=== PATIENT | female | born 1960 | race Hispanic/Latino ===

== ENCOUNTER → 2017-08-10 13:11 | Outpatient (CLI) | payer SELFPAY ==
--- NOTE | 2017-08-10 13:15 | HPBI_ITS ---
MAMMOGRAPHY - UNILATERAL DIAGNOSTIC: LEFT BREAST REASON FOR EXAM: Female, 57 years old. Left breast mass. PERTINENT HISTORY: Prior bilateral excisional biopsies. TECHNIQUE: Digital unilateral breast marcelo (3D mammographic acquisition) in the CC and MLO projections. 2-D mediolateral oblique (MLO) and craniocaudad (CC) views of both breasts were obtained. CAD: Full Field Digital Mammography with Computer Added Detection was performed. COMPARISON: Comparison is made with prior study dated November 28, 2012. FINDINGS: Breast Composition: The breasts are heterogeneously dense, which may obscure small masses. There are no dominant masses or suspicious calcifications. Stable left axillary benign-appearing lymph nodes. No other significant abnormalities are identified. There has been no significant change since the prior study. HPBI/DIAG MAMM W/CAD, UNILAT IMPRESSION: Stable unilateral diagnostic mammogram. With the patient's history of a palpable abnormality of the left breast, correlation with ultrasound is recommended. ASSESSMENT CATEGORY: BIRADS Category 0: Incomplete. Need additional imaging evaluation. A letter regarding these results will be sent to the patient by the facility within 30 days. Approximately 10% of breast cancers are not detected by mammography. A normal mammogram should not delay biopsy of a clinically suspicious abnormality. Electronically Signed: Milad Brizuela MD at 14:24 EST Tel [phone], Service support ,
--- NOTE | 2017-08-10 14:30 | US_ITS ---
STUDY: ULTRASOUND BREAST - LEFT REASON FOR EXAM: Female, 57 years old. Palpable lump left breast. TECHNIQUE: Axial and longitudinal images of the LEFT breast were performed with a high resolution ultrasound transducer. COMPARISON: Comparison is made with prior mammogram dated August 10, 2017. FINDINGS: LEFT Breast: There is a 3 mm x 3 mm x 2 mm focal hypodensity in the subcutaneous tissues corresponding to the palpable abnormality. This most likely represents a sebaceous cyst. US/Breast Limited Unilateral IMPRESSION: The palpable abnormality most likely corresponds to a small sebaceous cyst. ASSESSMENT CATEGORY: BIRADS Category 2: Benign. A letter regarding these results will be sent to the patient by the facility within 30 days. Electronically Signed: Milad Brizuela MD at 14:06 EST Tel [phone], Service support ,
== END ==
PROVIDERS: Family Provider Internal Medicine; PCP Internal Medicine; Visit Provider Nurse Practitioner Women's Health
DX: N63.20 Unspecified lump in the left breast, unspecified quadrant (principal)
CPT/HCPCS: 76642; 77061; 77065; G0279

== ENCOUNTER → 2018-02-20 15:25 | Outpatient (CLI) | payer MEDICAID, SELFPAY ==
[2018-02-20 15:27] LABS: Bacteria 0 SEEN /hpf (None Seen); Mucous, Urine 0 SEEN /hpf (<or=2+); Red Blood Cells-Urine 0 SEEN /hpf (0-5)
[2018-02-20 16:15] LABS: Color, Urine Straw (Yellow); Glucose, Dipstick Normal (Normal); Ketone-Dipstick Negative (Negative); Leukocyte Esterase-Dipstick 500 /ul (Negative); Nitrite-Dipstick Negative (Negative); Occult Blood-Urine 10 /ul (Negative); Protein-Dipstick Negative (Negative); Specific Gravity, Urine 1.005 (1.002-1.030); Urine Bilirubin Dipstick Negative (Negative); Urine Clarity Clear (Clear); Urine Urobilinogen Normal (Normal)
[2018-02-20 16:33] LABS: Squamous Epithelial Cells - UA 0-5 SEEN /hpf (5-10); White Blood Cells 10-25 SEEN /hpf (0-5)
== END ==
PROVIDERS: Family Provider Internal Medicine; PCP Internal Medicine; Visit Provider Physician Assistant Surgical
DX: R30.0 Dysuria (principal)
CPT/HCPCS: 81001; 87086; 87088

== ENCOUNTER → 2018-04-14 15:33 | Outpatient (CLI) | payer MEDICAID, SELFPAY | PROVIDERS: Family Provider Internal Medicine; PCP Internal Medicine; Referring Provider Physician Assistant Medical; Visit Provider Physician Assistant Medical | DX: J02.9 Acute pharyngitis, unspecified (principal) | CPT/HCPCS: 87081 ==

== ENCOUNTER → 2018-05-07 10:28 | Outpatient (CLI) | payer OTHER, SELFPAY ==
[2018-05-06 08:51] VITALS: BMI 35.1
[2018-05-07 10:41] LABS: Mucous, Urine 0 SEEN /hpf (<or=2+)
[2018-05-07 10:45] LABS: Color, Urine Yellow (Yellow); Glucose, Dipstick Normal (Normal); Ketone-Dipstick Negative (Negative); Leukocyte Esterase-Dipstick 500 /ul (Negative); Nitrite-Dipstick Positive (Negative); Occult Blood-Urine 50 /ul (Negative); Protein-Dipstick Negative (Negative); Urine Bilirubin Dipstick Negative (Negative); Urine Clarity Sl. Cloudy (Clear); Urine Urobilinogen Normal (Normal)
[2018-05-07 11:15] LABS: Red Blood Cells-Urine 0-5 SEEN /hpf (0-5)
[2018-05-07 11:16] LABS: Bacteria 2+ /hpf (None Seen); Squamous Epithelial Cells - UA 0-5 SEEN /hpf (5-10); White Blood Cells 25-50 SEEN /hpf (0-5)
== END ==
PROVIDERS: Family Provider Internal Medicine; PCP Internal Medicine; Referring Provider Nurse Practitioner Family; Visit Provider Nurse Practitioner Family
DX: R30.0 Dysuria (principal)
CPT/HCPCS: 81001; 87086; 87088; 87186

== ENCOUNTER → 2018-05-12 09:13 | Outpatient (CLI) | payer SELFPAY ==
[2018-05-06 08:51] VITALS: BMI 35.1
--- NOTE | 2018-05-12 09:35 | RAD_ITS ---
STUDY: X-RAY - RIGHT FOOT CLINICAL: Female, 58 years old. Pain for weeks TECHNIQUE: view(s) of the foot. COMPARISON: None. FINDINGS: There is an enthesophyte involving the posterior superior calcaneus at the site of insertion of the Achilles tendon. There is a plantar spur. There are accessory ossicles seen on the plantar side of the tarsals. Normal visualized subtalar, talonavicular, calcaneocuboid, tarsal and tarsometatarsal articulations. There is a well-corticated slightly irregular appearance of the distal fourth metatarsal which may represent old injury. There appears to be mild soft tissue swelling about the foot. There is enthesopathic V at the proximal fifth metatarsal. Normal metatarsophalangeal joint of the great toe. Normal tibial and fibular sesamoid bones. Normal interphalangeal joint of the great toe. Normal phalanges of the great toe. Normal second through fifth metatarsophalangeal joints. Normal interphalangeal joints and phalanges of the lesser toes. There is partially visualized slight cortical irregularity of the distal fibula. RAD/Foot min 3 Views IMPRESSION: Mild soft tissue swelling. Possible old injury of the fourth metatarsal. No visualized acute fracture. Partially visualized Possible prior injury of the distal fibula. Electronically Signed: Maria Ines Sethi MD at 10:54 EST Tel , Service support ,
== END ==
PROVIDERS: Family Provider Internal Medicine; PCP Internal Medicine; Referring Provider Internal Medicine; Visit Provider Internal Medicine
DX: M21.961 Unspecified acquired deformity of right lower leg (principal)
CPT/HCPCS: 73630

== ENCOUNTER → 2018-06-06 14:19 | Outpatient (CLI) | payer OTHER, SELFPAY ==
[2018-06-06 09:28] VITALS: BMI 35.1
== END ==
PROVIDERS: Family Provider Internal Medicine; PCP Internal Medicine; Referring Provider Nurse Practitioner Family; Visit Provider Nurse Practitioner Family
DX: J02.9 Acute pharyngitis, unspecified (principal)
CPT/HCPCS: 87070

== ENCOUNTER → 2018-06-20 09:33 | Outpatient (CLI) | payer OTHER, SELFPAY ==
[2018-06-06 09:28] VITALS: BMI 35.1
--- NOTE | 2018-06-20 09:36 | MRI_ITS ---
STUDY: MRI BRAIN WITH AND WITHOUT CONTRAST REASON FOR EXAM: Female, 58 years old. Yearly checkup of meningioma. TECHNIQUE: Standardized multiplanar fat and water weighted pulse sequences were obtained. 9 ml of Gadavist contrast material was administered intravenously for the contrast portion of the examination. COMPARISON: 06/23/2017. FINDINGS: Solid enhancing right infratentorial meningioma measures 3.4 x 2.3 cm in the axial projection, who 0.9 x 2.6 cm in the coronal projection and 3 x 2.6 cm in the sagittal projection. Allowing for differences in technique and slice levels, this is unchanged. There is no associated vasogenic edema. Normal size of the ventricles and extra-axial spaces for the patient's age. Normal white matter tracts of the supratentorial brain. Normal bilateral basal ganglia. Normal thalami. There is no extra-axial fluid accumulation. Normal flow voids within the major intracranial circulation suggesting patency by spin echo criteria. Normal venous enhancement. There is no enhancing intra-axial or extra-axial abnormality. Normal sella turcica, pituitary gland, infundibular stalk, optic chiasm and hypothalamus. Normal tectal plate and pineal gland. Normal midbrain, shilpa and medulla. Normal cerebellum. Normal basal cisterns. Normal bilateral temporal bones. Normal bilateral internal auditory canals. No demonstrated orbital abnormality, within the constraints of a routine brain study. Normal visualized paranasal sinuses. Normal calvarium and skull base. Normal visualized soft tissue structures. Normal visualized upper cervical spine. MRI/Brain W/WO Contrast IMPRESSION: 1. Stable and unchanged solid enhancing right infratentorial meningioma without associated vasogenic edema. 2. No interval changes or new findings when compared to 06/23/2017. Electronically Signed: Hakan Iniguez MD at 9:42 EST , Service support ,
== END ==
PROVIDERS: Family Provider Internal Medicine; PCP Internal Medicine; Referring Provider Internal Medicine Hematology & Oncology; Visit Provider Internal Medicine Hematology & Oncology
DX: D32.0 Benign neoplasm of cerebral meninges (principal)
CPT/HCPCS: 70553; A9585

== ENCOUNTER → 2018-08-15 16:13 | Outpatient (CLI) | payer OTHER, SELFPAY ==
[2018-08-15 09:20] VITALS: BMI 37.3
[2018-08-22 12:20] LABS: HPV APTIMA, High Risk Negative (Negative)
== END ==
PROVIDERS: Family Provider Internal Medicine; PCP Internal Medicine; Referring Provider Obstetrics & Gynecology; Visit Provider Obstetrics & Gynecology
DX: N39.0 Urinary tract infection, site not specified (principal); Z12.4 Encounter for screening for malignant neoplasm of cervix
CPT/HCPCS: 87086; 87088; 87624; 88175; G0145

== ENCOUNTER → 2018-10-22 | Outpatient (CLI) | payer SELFPAY ==
[2018-09-05 17:47] VITALS: BMI 35.6
[2018-10-22 08:56] LABS: Absolute Lymphocyte Count 1.98 X10^3/ul (0.83-4.51); Absolute Neutrophil Count 7.6 X10^3/uL (2.0-7.7); Basophil# 0.05 X10^3/uL; Basophil% 0.5 % (0-1); Eosinophil# 0.37 X10^3/uL; Eosinophils% 3.5 % (0-5); Hematocrit 41.7 % (37-47); Hemoglobin 13.9 g/dl (12.0-15.0); Lymphocyte # 1.98 X10^3/ul (4.0); Lymphocyte % 18.5 % (19-41); Mean Corp Hgb Conc 33.3 g/gl (32-36); Mean Corpuscular Hgb 30.1 pg (27.0-32.0); Mean Corpuscular Volume 90.3 fL (81-99); Monocyte# 0.66 X10^3/uL; Monocyte% 6.2 % (0-10); Neutrophil # 7.63 X10^3/uL (2.7-7.7); Neutrophil % 71.2 % (47-70); Platelet Count 423 K/mm3 (150-450); RBC Distribution Width CV 13.7 % (11.6-14.6); RBC Distribution Width SD 44.7 fl (35.1-43.9); Red Blood Count 4.62 M/mm3 (4.2-5.4); White Blood Count 10.7 K/mm3 (4.4-11.0)
[2018-10-22 08:57] LABS: POSITIVE COUNT NO; POSITIVE DIFFERENTIAL NO; POSITIVE MORPHOLOGY NO
[2018-10-22 09:22] LABS: AST(SGOT) 25 U/L (15-37); Alanine Aminotransfer ALT/SGPT 24 U/L (13-56); Albumin, Serum 3.6 g/dL (3.2-5.0); Alkaline Phosphatase 111 U/L (45-117); Anion Gap 7 (5-15); BUN 20 mg/dL (7-18); BUN/Creat Ratio 33.3 RATIO (10-20); Calcium,Total 9.1 mg/dL (8.5-10.1); Chloride 110 mmol/L (98-107); Cholesterol 193 mg/dL (200); EST Glomerular Filtration Rate 109 mL/min (>60); Est Glom Filt Rate - Afr Amer 132 mL/min (>60); Globulin 3.6 g/dL (2.2-4.2); Glucose 99 mg/dL (74-106); High Density Lipoprotein 70 mg/dL; Potassium 4.2 mmol/L (3.5-5.1); Protein, Total 7.2 g/dL (6.4-8.2); Sodium Level 142 mmol/L (136-145); Triglycerides 148 mg/dL; Very Low Density Lipoprotein 30 mg/dL (5-40)
[2018-10-22 09:27] LABS: Hemoglobin A1c 5.8 % (4.2-6.3)
== END | disposition home or self-care (01) ==
LOC: LAB 07:35
PROVIDERS: Family Provider Internal Medicine; PCP Internal Medicine; Referring Provider Internal Medicine; Visit Provider Internal Medicine
DX: M81.0 Age-related osteoporosis without current pathological fracture (principal); E78.5 Hyperlipidemia, unspecified; E66.9 Obesity, unspecified
CPT/HCPCS: 36415; 80053; 80061; 83036; 85025

== ENCOUNTER 2018-11-02 13:05 | Emergency (ER) | payer OTHER, SELFPAY ==
[2018-10-24 17:52] VITALS: BMI 35.6
[2018-11-02 13:05] VITALS: BP 162/96; PULSE 70; RESP 14; TEMP 35.6; O2SAT 96; BMI 34.3
[2018-11-02 13:25] VITALS: BP 137/83; PULSE 71; RESP 12; O2SAT 98
--- NOTE | 2018-11-02 13:32 | EKG12_ITS ---
Test Reason : HTN Blood Pressure : / mmHG Vent. Rate : 064 BPM Atrial Rate : 064 BPM P-R Int : 148 ms QRS Dur : 092 ms QT Int : 428 ms P-R-T Axes : 050 023 010 degrees QTc Int : 441 ms Normal sinus rhythm Normal ECG Confirmed by GEO GILL, MAXINE ([id number]), editor managing director GIORGIO ZHU ([id number] on 11/05/2018 4:13:17 PM Referred By: ZELDA Confirmed By:MAXINE GUARDADO MD
--- NOTE | 2018-11-02 13:42 | ED.VISSUMM ---
- ER Visit Summary Date of Service: 11/02/18 Chief Complaint: Dizziness History of Present Illness: The patient is a 58 F who presents with dizziness that began today while she was at work. Patient states she felt like she was still moving even after she sat down. Patient states her dizziness is worse with certain head movements. Patient states that improves with rest. Patient checked her blood pressure at [facility] and was elevated at 161/80. Patient denies any headaches. Patient does admit to some pressure in her ears. Patient also admits to a sore throat and cough recently. Patient admits to some nausea but denies any vomiting. Physical Examination: Vital signs are stable. Patient is afebrile. Patient is in no acute distress. Pupils are equal, round, and reactive to light bilaterally. Extraocular muscles are intact. There is no nystagmus noted. Oral mucosa is pink and moist. Neck is supple. Trachea is midline. There is no JVD noted. Heart was regular rate and rhythm. Lungs are clear and equal bilateral. Abdomen is soft. Bowel sounds are normal. There is no tenderness. There is no guarding noted. Skin is warm dry. Cranial nerves II through XII are intact. There are no focal motor or sensory deficits noted. The remaining physical exam is within normal limits. Test Results: EKG showed normal sinus rhythm with a rate of low. There are no acute ST or T wave changes. CBC, basic metabolic profile, troponin, and urinalysis were obtained and were all normal. Emergency Department Course and Treatment: Patient was given IV fluids here. Patient is feeling better on reevaluation. Patient was instructed to follow-up with her primary care physician in 5 to 7 days. Patient and family understood and were agreeable with the plan. All questions were answered. Disposition: Discharge home Impression: Dizziness This note was generated with wizboo dictation software. It may contain incorrect words, spelling, and punctuation that were not noted in review of the chart prior to signing ED Disposition - Plan for ED Patient: Disposition: Home or Assisted Living Diagnosis: Dizziness Instructions: ED Dizziness [facility] Prescriptions: Meclizine HCl [Antivert] 25 mg PO TID PRN PRN #20 tablet PRN Reason: Dizziness Referrals: Camille Chappell MD [Primary Care Provider] - 3-5 Days Additional Instructions: Prescription was electronically transmitted to [facility] pharmacy
[2018-11-02] MEDS: 0.9% Normal Saline 1,000 ML 1000 ML IV (13:51)
[2018-11-02 14:06] LABS: Absolute Lymphocyte Count 1.99 X10^3/ul (0.83-4.51); Absolute Neutrophil Count 4.7 X10^3/uL (2.0-7.7); Basophil# 0.02 X10^3/uL; Basophil% 0.3 % (0-1); Eosinophil# 0.25 X10^3/uL; Eosinophils% 3.2 % (0-5); Hematocrit 39.9 % (37-47); Hemoglobin 13.5 g/dl (12.0-15.0); Lymphocyte # 1.99 X10^3/ul (4.0); Lymphocyte % 25.8 % (19-41); Mean Corp Hgb Conc 33.8 g/gl (32-36); Mean Corpuscular Hgb 30.3 pg (27.0-32.0); Mean Corpuscular Volume 89.7 fL (81-99); Mean Platelet Vol. 9.3 fl (6.2-12.0); Monocyte# 0.73 X10^3/uL; Monocyte% 9.5 % (0-10); Neutrophil # 4.72 X10^3/uL (2.7-7.7); Neutrophil % 61.1 % (47-70); POSITIVE COUNT NO; POSITIVE DIFFERENTIAL NO; POSITIVE MORPHOLOGY NO; Platelet Count 479 K/mm3 (150-450); RBC Distribution Width CV 13.3 % (11.6-14.6); RBC Distribution Width SD 42.9 fl (35.1-43.9); Red Blood Count 4.45 M/mm3 (4.2-5.4); White Blood Count 7.7 K/mm3 (4.4-11.0)
[2018-11-02 14:18] LABS: Anion Gap 6 (5-15); BUN 19 mg/dL (7-18); BUN/Creat Ratio 29.1 RATIO (10-20); Chloride 106 mmol/L (98-107); Creatinine, Serum 0.65 mg/dL (0.55-1.02); EST Glomerular Filtration Rate 99 mL/min (>60); Est Glom Filt Rate - Afr Amer 120 mL/min (>60); Estimated Creatinine Clearance 82.46 ml/min; Glucose 95 mg/dL (74-106); Potassium 3.9 mmol/L (3.5-5.1); Sodium Level 139 mmol/L (136-145)
[2018-11-02 14:26] LABS: Bacteria 0 SEEN /hpf (None Seen); Mucous, Urine 0 SEEN /hpf (<or=2+); Red Blood Cells-Urine 0 SEEN /hpf (0-5)
[2018-11-02 14:40] LABS: Color, Urine Yellow (Yellow); Glucose, Dipstick Normal (Normal); Ketone-Dipstick Negative (Negative); Leukocyte Esterase-Dipstick 25 /ul (Negative); Nitrite-Dipstick Negative (Negative); Occult Blood-Urine Negative /ul (Negative); Protein-Dipstick Negative (Negative); Urine Bilirubin Dipstick Negative (Negative); Urine Clarity Sl. Cloudy (Clear); Urine Urobilinogen Normal (Normal)
[2018-11-02 14:49] LABS: Squamous Epithelial Cells - UA 0-5 SEEN /hpf (5-10); White Blood Cells 0-5 SEEN /hpf (0-5)
[2018-11-02 14:53] VITALS: BP 128/72; PULSE 67
== END 2018-11-02 15:09 | disposition home or self-care (01) ==
PROVIDERS: Emergency Provider Emergency Medicine; Family Provider Internal Medicine; PCP Internal Medicine
DX: R42 Dizziness and giddiness (principal); H92.09 Otalgia, unspecified ear; J02.9 Acute pharyngitis, unspecified; R05 Cough; R10.9 Unspecified abdominal pain; R11.0 Nausea; M54.9 Dorsalgia, unspecified; J45.909 Unspecified asthma, uncomplicated; I10 Essential (primary) hypertension; M81.0 Age-related osteoporosis without current pathological fracture; Z79.899 Other long term (current) drug therapy
CPT/HCPCS: 80048; 81001; 84484; 85025; 93005; 96360; 99284; J7030

== ENCOUNTER → 2019-06-17 16:21 | Outpatient (CLI) | payer OTHER, SELFPAY ==
[2019-06-17 15:48] VITALS: BMI 34.3
[2019-06-17 18:08] LABS: Vitamin D,25 Hydroxy 17.2 ng/mL (29.95-100.01)
== END ==
PROVIDERS: Family Provider Internal Medicine; PCP Internal Medicine; Referring Provider Internal Medicine Endocrinology, Diabetes & Metabolism; Visit Provider Internal Medicine Endocrinology, Diabetes & Metabolism
DX: E55.9 Vitamin D deficiency, unspecified (principal)
CPT/HCPCS: 36415; 82306

== ENCOUNTER → 2019-07-27 09:14 | Outpatient (CLI) | payer OTHER, SELFPAY ==
[2019-06-17 15:48] VITALS: BMI 34.3
--- NOTE | 2019-07-27 09:15 | BI_ITS ---
MAMMOGRAPHY - BILATERAL SCREENING REASON FOR EXAM: Female, 59 years old. Routine annual screening examination. PERTINENT HISTORY: Non-contributory. Remote bilateral excisional breast biopsies. TECHNIQUE: Digital bilateral breast bo (3D mammographic acquisition) in the CC and MLO projections. 2-D mediolateral oblique (MLO) and craniocaudad (CC) views of both breasts were obtained. CAD: Full Field Digital Mammography with Computer Added Detection was performed. COMPARISON: Comparison is made with prior study dated November 28, 2012. FINDINGS: Breast Composition: The breasts are heterogeneously dense, which may obscure small masses. There are no dominant masses or suspicious calcifications. Stable bilateral small benign-appearing axillary lymph nodes. A tissue clip marker is seen within the central slightly medial aspect of the right breast. No other significant abnormalities are identified. There has been no significant change since the prior study. BI/SCREEN MAMM (CAD) W/BO BILAT IMPRESSION: Stable bilateral screening mammogram. Yearly follow-up mammogram recommended. (A) ASSESSMENT CATEGORY: BIRADS Category 2: Benign. A letter regarding these results will be sent to the patient by the facility within 30 days. Approximately 10% of breast cancers are not detected by mammography. A normal mammogram should not delay biopsy of a clinically suspicious abnormality. [id number] Electronically Signed: Milad Brizuela, at 8:58 EST , Service support ,
== END ==
LOC: OPBI 09:15
PROVIDERS: PCP Internal Medicine; Referring Provider Nurse Practitioner Women's Health; Visit Provider Nurse Practitioner Women's Health
DX: Z12.31 Encounter for screening mammogram for malignant neoplasm of breast (principal)
CPT/HCPCS: 77063; 77067

== ENCOUNTER → 2020-06-16 | Outpatient (CLI) | payer OTHER, SELFPAY ==
[2020-02-05 10:52] VITALS: BMI 34.3
[2020-06-16 11:37] LABS: Mucous, Urine 0 SEEN /hpf (<or=2+); Red Blood Cells-Urine 0 SEEN /hpf (0-5); White Blood Cells 0 SEEN /hpf (0-5)
[2020-06-16 12:21] LABS: Color, Urine Yellow (Yellow); Glucose, Dipstick Normal (Normal); Ketone-Dipstick Negative (Negative); Leukocyte Esterase-Dipstick Negative /ul (Negative); Nitrite-Dipstick Negative (Negative); Occult Blood-Urine Negative /ul (Negative); Protein-Dipstick Negative (Negative); Specific Gravity, Urine 1.005 (1.002-1.030); Urine Bilirubin Dipstick Negative (Negative); Urine Clarity Clear (Clear); Urine Urobilinogen Normal (Normal); Urine pH 6.5 (5.0 - 8.0)
[2020-06-16 12:28] LABS: Bacteria RARE /hpf (None Seen); Squamous Epithelial Cells - UA 0-5 SEEN /hpf (5-10)
== END | disposition home or self-care (01) ==
LOC: LABSPEC 11:35
PROVIDERS: PCP Internal Medicine; Referring Provider Nurse Practitioner Family; Visit Provider Nurse Practitioner Family
DX: R30.0 Dysuria (principal)
CPT/HCPCS: 81001; 87086; 87088

== ENCOUNTER → 2020-10-15 09:01 | Outpatient (CLI) | payer OTHER, SELFPAY ==
[2020-10-15 12:09] LABS: Absolute Lymphocyte Count 1.69 X10^3/uL (0.83-4.51); Absolute Neutrophil Count 4.4 X10^3/uL (2.0-7.7); Basophil# 0.05 X10^3/uL; Basophil% 0.7 % (0-1); Eosinophil# 0.49 X10^3/uL; Eosinophils% 6.7 % (0-5); Hematocrit 44.4 % (37-47); Hemoglobin 14.5 g/dL (12.0-15.0); Lymphocyte # 1.69 X10^3/ul (0.83-4.51); Lymphocyte % 23.2 % (19-41); Mean Corp Hgb Conc 32.7 g/dL (32-36); Mean Corpuscular Hgb 30.7 pg (27.0-32.0); Mean Corpuscular Volume 94.1 fL (81-99); Monocyte# 0.61 X10^3/uL; Monocyte% 8.4 % (0-10); NRBC Flagged by Analyzer 0 % (0-5); Neutrophil # 4.42 X10^3/uL (2.7-7.7); Neutrophil % 60.7 % (47-70); Platelet Count 402 K/mm3 (150-450); RBC Distribution Width CV 12.2 % (11.6-14.6); RBC Distribution Width SD 42.5 fl (35.1-43.9); Red Blood Count 4.72 M/mm3 (4.2-5.4); White Blood Count 7.3 K/mm3 (4.4-11.0)
[2020-10-15 12:25] LABS: Vitamin D,25 Hydroxy 44.1 ng/mL
[2020-10-15 12:29] LABS: ALB/GLOB Ratio 1.1 RATIO (0.9-2.4); AST(SGOT) 24 U/L (15-37); Alanine Aminotransfer ALT/SGPT 25 U/L (13-56); Albumin, Serum 3.9 g/dL (3.2-5.0); Alkaline Phosphatase 108 U/L (45-117); Anion Gap 5 (5-15); BUN 18 mg/dL (7-18); BUN/Creat Ratio 26.5 RATIO (10-20); Calcium,Total 9.5 mg/dL (8.5-10.1); Chloride 105 mmol/L (98-107); Cholesterol 188 mg/dL (200); Creatinine, Serum 0.68 mg/dL (0.55-1.02); EST Glomerular Filtration Rate 94 mL/min (>60); Est Glom Filt Rate - Afr Amer 114 mL/min (>60); Globulin 3.7 g/dL (2.2-4.2); Glucose 91 mg/dL (74-106); High Density Lipoprotein 68 mg/dL; Potassium 4.1 mmol/L (3.5-5.1); Protein, Total 7.6 g/dL (6.4-8.2); Sodium Level 138 mmol/L (136-145); Triglycerides 123 mg/dL; Very Low Density Lipoprotein 25 mg/dL (5-40)
== END ==
PROVIDERS: PCP Internal Medicine; Referring Provider Internal Medicine; Visit Provider Internal Medicine
DX: I10 Essential (primary) hypertension (principal); E55.9 Vitamin D deficiency, unspecified
CPT/HCPCS: 36415; 80053; 80061; 82306; 85025

== ENCOUNTER → 2020-10-29 07:01 | Outpatient (CLI) | payer OTHER, SELFPAY ==
[2020-10-19 09:09] VITALS: BMI 34.3
[2020-10-22 13:28] VITALS: BMI 34.3
--- NOTE | 2020-10-29 07:03 | BI_ITS ---
MAMMOGRAPHY - BILATERAL SCREENING REASON FOR EXAM: Female, 60 years old. Routine annual screening examination. PERTINENT HISTORY: Non-contributory. Remote right and left excisional breast biopsies. TECHNIQUE: Digital bilateral breast bo (3D mammographic acquisition) in the CC and MLO projections. 2-D mediolateral oblique (MLO) and craniocaudad (CC) views of both breasts were obtained. CAD: Full Field Digital Mammography with Computer Added Detection was performed. COMPARISON: Comparison is made with prior study of July 2019 and 11/28/2012. FINDINGS: Breast Composition: The breasts are heterogeneously dense, which may obscure small masses. There are no dominant masses or suspicious calcifications. Interstitial markings once again seen in the central slightly medial aspect of the right breast stable benign appearing bilateral axillary lymph nodes. No other significant abnormalities are identified. There has been no significant change since the prior study. BI/SCRN MAMM (CAD)W/BO BILAT IMPRESSION: Stable bilateral screening mammogram. Yearly follow-up mammogram recommended. (A) ASSESSMENT CATEGORY: BIRADS Category 2: Benign. A letter regarding these results will be sent to the patient by the facility within 30 days. Approximately 10% of breast cancers are not detected by mammography. A normal mammogram should not delay biopsy of a clinically suspicious abnormality. [id number] Electronically Signed: Milad Brizuela MD at 8:27 EDT , Service support ,
== END ==
PROVIDERS: PCP Internal Medicine; Referring Provider Internal Medicine; Visit Provider Internal Medicine
DX: Z12.31 Encounter for screening mammogram for malignant neoplasm of breast (principal)
CPT/HCPCS: 77063; 77067

== ENCOUNTER → 2021-11-04 | Outpatient (CLI) | payer OTHER, SELFPAY ==
--- NOTE | 2021-11-04 08:08 | BI_ITS ---
MAMMOGRAPHY - BILATERAL SCREENING REASON FOR EXAM: Female, 61 years old. Routine annual screening examination. PERTINENT HISTORY: Non-contributory. History of prior bilateral excisional breast biopsies. TECHNIQUE: Digital bilateral breast bo (3D mammographic acquisition) in the CC and MLO projections. 2-D mediolateral oblique (MLO) and craniocaudad (CC) views of both breasts were obtained. CAD: Full Field Digital Mammography with Computer Added Detection was performed. COMPARISON: Comparison is made with prior study dated 10/29/2020 and 07/27/2019. FINDINGS: Breast Composition: The breasts are heterogeneously dense, which may obscure small masses. There are no dominant masses or suspicious calcifications. A tissue clip marker is seen in the deep central medial aspect of the left breast. Stable microcalcifications in in the central portion of the left breast. No other significant abnormalities are identified. There has been no significant change since the prior study. BI/SCRN MAMM (CAD)W/BO BILAT IMPRESSION: Stable bilateral screening mammogram. Yearly follow-up mammogram recommended. (A) ASSESSMENT CATEGORY: BIRADS Category 2: Benign. A letter regarding these results will be sent to the patient by the facility within 30 days. Approximately 10% of breast cancers are not detected by mammography. A normal mammogram should not delay biopsy of a clinically suspicious abnormality. [id number] Electronically Signed: iMlad Brizuela MD at 9:01 EDT ,
--- NOTE | 2021-11-04 08:27 | BD_ITS ---
STUDY: DUAL ENERGY X-RAY ABSORPTIOMETRY / DXA REASON FOR EXAM: Female, 61 years old. Osteoporosis TECHNIQUE: Bone Mineral Density (BMD) measurements of lumbar spine and bilateral hips were obtained. COMPARISON: None. FINDINGS: Lumbar Spine (L1-L4): g/cm2 (0.774) / T-score (-2.2) / Z-score (-0.8) Findings are suggestive of osteopenia with a high fracture risk. Left Femur Total: g/cm2 (0.860) / T-score (-0.7) / Z-score (0.3) Left Femoral Neck: g/cm2 (0.68) / T-score (-1.5) / Z-score (-0.2) Right Femur Total: g/cm2 (0.828) / T-score (-0.9) / Z-score (0.1) Right Femoral Neck: g/cm2 (0.676) / T-score (-1.6) / Z-score (-0.2) BD/Dexa Bone Density Study IMPRESSION: The patient is considered osteopenic as outlined below according to World Arturo Organization (WHO) criteria with a high fracture risk. Reference Information: The T-score is the number of standard deviations above or below the standard which is normal for young adults at their peak bone mineral density. The World Health Organization (WHO) interprets the T-scores as follows: Above -1 Normal bone density Between -1 and -2.5 Osteopenia Equal to / or below -2.5 Osteoporosis As a practical clinical guideline, osteopenia may be graded as follows: Mild -1 through -1.5 Moderate -1.6 through -2.0 Severe -2.1 through -2.4 The Z-score is the number of standard deviations above or below age-matched controls. A Z-score of less than -1.5 would be considered abnormal. References: 1. NIH Osteoporosis and Related Bone Diseases www osteo.org 2. International Society for Clinical Densitometry www iscd.org 3. National Osteoporosis Foundation www nof.org Electronically Signed: Milad Brizuela MD at 12:54 EDT ,
== END | disposition home or self-care (01) ==
LOC: OPBI 08:05
PROVIDERS: PCP Internal Medicine; Visit Provider Internal Medicine
DX: Z12.31 Encounter for screening mammogram for malignant neoplasm of breast (principal); Z13.820 Encounter for screening for osteoporosis; M81.0 Age-related osteoporosis without current pathological fracture
CPT/HCPCS: 77063; 77067; 77080

== ENCOUNTER 2021-11-30 06:16 | Day surgery (SDC) | payer OTHER, SELFPAY ==
[2021-11-30] VITALS (11 sets, daily range): BP systolic 94–154; BP diastolic 52–82; PULSE 56–65; RESP 16–18; TEMP 36.1–36.4; O2SAT 95–100; BMI 32.8
--- NOTE | 2021-11-30 | COLBX_PTH ---
PATIENT: YASEMIN VALENZUELA I LOC: EN U#:[id number] AGE/SX: 61/F ROOM: RE11/30/[address]: Dr. Diogenes Tilley MD : 1960 BED: DIS: 11/30/2021 SPEC #: [id number] RECD: 11/30/21 13:22 STATUS: HERNANDEZ BENTLEY #: [id number] NNAMDI: 11/30/21 00:[address]: Diogenes Tilley DEPT: SURGICAL PATHOLOGY RECD BY: Lee Benavidez ENTERED: 11/30/21 13:23 SP TYPE: COLON BX OTHR DR: Dr. Camille Chappell MD Tissues: SPLENIC FLEXURE Procedures: Surgery Specimen Level IV HEADER OPERATION: Colonoscopy with polypectomy, open access (MOD) PRE-OP DIAGNOSIS: History of colonic polyps TISSUE SUBMITTED: Polyp biopsy, splenic flexure MICROSCOPIC DIAGNOSIS Colonic polyp at splenic flexure, biopsy: Tubular adenoma. AM:july 12/01/2021 MICROSCOPIC DESCRIPTION Slides are reviewed. GROSS DESCRIPTION Received in fixative is one container labeled with the patient's name and designated polyp biopsy splenic flexure. The specimen consists of two irregular fragments of light huber soft tissue that in aggregate measure 0.6 x 0.3 x 0.1 cm. The specimen is totally submitted in one cassette. / SJ:july 11/30/2021 TC:5 CPT: 03608
[2021-11-30] MEDS: Lactated Ringers 1,000 ML 15 ML IV (06:58)
--- NOTE | 2021-11-30 07:17 | PCM.HP.STD ---
HPI - General HPI Narrative YASEMIN VALENZUELA, is a 61 F who presents via open access today for a colonoscopy. She has a personal history of colon polyps. Her previous colonoscopy by Dr. Trev Mukherjee was approximately 7 years ago. She is also had previous colon surgery with a sigmoid resection for diverticular disease. She currently denies any illnesses. No chest pain no shortness of breath. No history of DVT. [facility] Medical History (Updated 11/30/21 @ 07:[address] Diogenes Tilley MD) Abrasion of right heel Arthritis Asthma Back pain Back pain Colon cancer screening colon surgery-diverticulitis Fatty liver Health care maintenance High cholesterol HX: benign breast biopsy Hypertension Meningioma Osteoporosis Preventative health care Shoulder pain Sinusitis SOB (shortness of breath) Vitamin D deficiency Home Medications garlic 1,000 mg capsule 1,000 mg PO .QID cap 11/09/18 [History Last Taken Unknown] rosuvastatin 20 mg tablet 20 mg PO DAILY #90 tab 06/23/21 [Rx Last Taken Unknown] albuterol sulfate 90 mcg/actuation aerosol inhaler 2 puff INHALATION Q4H PRN #17 g 07/01/21 [Rx Last Taken Unknown] cyclobenzaprine 10 mg tablet 5 - 10 mg PO TID PRN #30 tab 07/01/21 [Rx Last Taken Unknown] dicyclomine 20 mg tablet 20 mg PO BID PRN #60 tab 07/01/21 [Rx Last Taken Unknown] cholecalciferol (vitamin D3) 1,250 mcg (50,000 unit) capsule 50,000 unit PO QWEEK #13 cap 08/05/21 [Rx Last Taken Unknown] methenamine hippurate 1 gram tablet 1 g PO BID #180 tab 11/08/21 [Rx Last Taken Unknown] propranolol 10 mg tablet 10 mg PO BID #180 tab 11/08/21 [Rx Last Taken 11/30/21] Allergy/AdvReac Type Severity Reaction Status Date / Time cephalexin monohydrate Allergy Severe Anaphylaxis Verified 11/30/21 06:52 [From Keflex] norfloxacin Allergy Severe Rash Verified 11/30/21 06:52 Latex, Natural Rubber Allergy Mild Itching Verified 11/30/21 06:52 isopropyl alcohol AdvReac Mild red Verified 11/30/21 06:52 seafood Allergy Severe Other Uncoded 11/30/21 06:52 Family History Uncle Colon cancer Grandmother Mouth cancer Uterine cancer Other Lung cancer Surgical History History of section History of tonsillectomy Social History Smoking Status: Never smoker alcohol intake: never substance use type: does not use caffeine: Yes what type of physical activity do you participate in: none seatbelt use: always do you feel safe at home: Yes additional social history: Single ROS Constitutional Constitutional: Reports systems reviewed and no addt'l complaints, except as documented Cardiovascular Cardiovascular: Denies chest pain Respiratory/Chest Respiratory/Chest: Denies shortness of breath at rest Gastrointestinal Gastrointestinal: Denies abdominal pain, change in bowel habits, hematochezia or melena Vital Signs Vital Signs Vital Signs: 11/30/21 06:53 Temperature 96.9 F L Temperature Source Temporal Pulse Rate 57 L Respiratory Rate 18 Respiratory Pattern Normal Blood Pressure 146/76 H Blood Pressure Mean 99 Blood Pressure Source Monitor Blood Pressure Position Semi-Fowlers Blood Pressure Location Right Arm Pulse Ox 95 Oxygen Delivery Method Room Air Weight Weight: 191 lb Body Mass Index (BMI) 32.8 Physical Exam Const alert, oriented x3 and no apparent distress General Appearance: cooperative and comfortable Eyes General Eye: normal appearance of both eyes Neck General: normal visual inspection Chest inspection of chest normal Resp Effort and Inspection: able to speak in complete sentences and symmetric chest movement Auscultation: clear to auscultation bilaterally Cardio regular rate and regular rhythm GI soft to palpation, non-tender and non-distended Extremity no calf tenderness Neuro oriented x3 Psych thought process normal Assessment & Plan Assessment/Plan (1) Personal history of colonic polyps: PLAN: The patient presents via open access today for screening colonoscopy with a personal history of colon polyps remotely. I discussed with her colonoscopy with possible biopsy or polypectomy as indicated. She is aware of the technique, benefit, risk, alternatives. We will proceed as noted. Diogenes Tilley M.D., F.A.C.S.
[2021-11-30] MEDS: Midazolam 5 MG/ML Syringe (07:50)
--- NOTE | 2021-11-30 08:19 | OP.CCLET_ITS ---
11/30/2021 Camille Chappell MD [address] [place] [address] [place] [address] Re : Colonoscopy procedure for Matilda Gordillo Dear Dr. Chappell This procedure was performed on Tuesday, November 30, 2021. My impressions and recommendations are as follows: Impressions : - Non-thrombosed external hemorrhoids, non-thrombosed internal hemorrhoids and internal hemorrhoids that prolapse with straining, but spontaneously regress to the resting position (Grade II) found on digital rectal exam. - One 6 mm polyp at the splenic flexure, removed with a cold biopsy forceps. Resected and retrieved. - Patent end-to-end colo-colonic anastomosis. - Diverticulosis in the sigmoid colon and in the transverse colon. Recommendations : - Discharge patient to home. - Resume previous diet. - Continue present medications. - Repeat colonoscopy in 5 years for surveillance based on pathology results. - Telephone my office for pathology results in 1 week. My findings are described in the full procedure note, which is enclosed. If I can be of further assistance, please feel free to contact me at Doctor phone number(s): Work: . Sincerely, Diogenes Tilley MD 11/30/2021 8:19:30 AM This report has been signed electronically.
--- NOTE | 2021-11-30 08:19 | OP.COLON_ITS ---
Patient Name: Matilda Gordillo Procedure Date: 11/30/2021 7:44 AM Date of : 1960 Age: 61 Procedure: Colonoscopy Indications: High risk colon cancer surveillance: Personal history of colonic polyps Providers: Diogenes Tilley MD Medicines: Midazolam 4 mg IV, Meperidine 100 mg IV Patient Profile: Last Colonoscopy: several years ago. Complications: No immediate complications. Procedure: Pre-Anesthesia Assessment: - Prior to the procedure, a History and Physical was performed, and patient medications and allergies were reviewed. The patient's tolerance of previous anesthesia was also reviewed. The risks and benefits of the procedure and the sedation options and risks were discussed with the patient. All questions were answered, and informed consent was obtained. Prior Anticoagulants: The patient has taken no previous anticoagulant or antiplatelet agents. ASA Grade Assessment: II - A patient with mild systemic disease. After reviewing the risks and benefits, the patient was deemed in satisfactory condition to undergo the procedure. After I obtained informed consent, the scope was passed under direct vision. Throughout the procedure, the patient's blood pressure, pulse, and oxygen saturations were monitored continuously. The colonoscope was introduced through the anus and advanced to the cecum, identified by appendiceal orifice and ileocecal valve. The colonoscopy was performed without difficulty. The patient tolerated the procedure well. The quality of the bowel preparation was good. The ileocecal valve was photographed. Moderate Sedation: Moderate (conscious) sedation was personally administered by the endoscopist. The following parameters were monitored: oxygen saturation, heart rate, blood pressure, and response to care. Total physician intraservice time was 15 minutes. Scope In: 7:57:34 AM Scope Withdrawal Time 0 hours 10 minutes 2 seconds Scope Out: 8:13:15 AM Total Procedure Duration Time 0 hours 15 minutes 41 seconds Findings: The digital rectal exam findings include non-thrombosed external hemorrhoids, non-thrombosed internal hemorrhoids and internal hemorrhoids that prolapse with straining, but spontaneously regress to the resting position (Grade II). A 6 mm polyp was found in the splenic flexure. The polyp was sessile. The polyp was removed with a cold biopsy forceps. Resection and retrieval were complete. There was evidence of a prior end-to-end colo-colonic anastomosis in the distal sigmoid colon. This was patent. A few diverticula were found in the sigmoid colon and transverse colon. Impression: - Non-thrombosed external hemorrhoids, non-thrombosed internal hemorrhoids and internal hemorrhoids that prolapse with straining, but spontaneously regress to the resting position (Grade II) found on digital rectal exam. - One 6 mm polyp at the splenic flexure, removed with a cold biopsy forceps. Resected and retrieved. - Patent end-to-end colo-colonic anastomosis. - Diverticulosis in the sigmoid colon and in the transverse colon. Recommendation: - Discharge patient to home. - Resume previous diet. - Continue present medications. - Repeat colonoscopy in 5 years for surveillance based on pathology results. - Telephone my office for pathology results in 1 week. Procedure Code(s): --- Professional --- 69836, Colonoscopy, flexible; with biopsy, single or multiple 61076, 59, Moderate sedation services provided by the same physician or other qualified health skin care technician performing the diagnostic or therapeutic service that the sedation supports, requiring the presence of an independent trained observer to assist in the monitoring of the patient's level of consciousness and physiological status; initial 15 minutes of intraservice time, patient age 5 years or older Diagnosis Code(s): --- Professional --- Z86.010, Personal history of colonic polyps K64.1, Second degree hemorrhoids K64.4, Residual hemorrhoidal skin tags D12.3, Benign neoplasm of transverse colon (hepatic flexure or splenic flexure) Z98.0, Intestinal bypass and anastomosis status K57.30, Diverticulosis of large intestine without perforation or abscess without bleeding CPT copyright 2017 [employer]. All rights reserved. The codes documented in this report are preliminary and upon braille coder review may be revised to meet current compliance requirements. Diogenes Tilley MD 11/30/2021 8:19:30 AM This report has been signed electronically. Number of Addenda: 0 Note Initiated On: 11/30/2021 7:44 AM
== END 2021-11-30 09:01 | disposition home or self-care (01) ==
LOC: EN 06:18 → AC 06:18
PROVIDERS: PCP Internal Medicine; Referring Provider Internal Medicine; Visit Provider Surgery
PROC: 0DJD8ZZ Inspection of Lower Intestinal Tract, Via Natural or Artificial Opening Endoscopic (ICD-10-PCS; CPT 45378; principal; 2021-11-30 07:25)
DX: D12.3 Benign neoplasm of transverse colon (principal); Z86.010 Personal history of colon polyps; K76.0 Fatty (change of) liver, not elsewhere classified; E78.00 Pure hypercholesterolemia, unspecified; E55.9 Vitamin D deficiency, unspecified; M81.0 Age-related osteoporosis without current pathological fracture; I10 Essential (primary) hypertension; J45.909 Unspecified asthma, uncomplicated; M19.90 Unspecified osteoarthritis, unspecified site; Z79.899 Other long term (current) drug therapy; Z87.440 Personal history of urinary (tract) infections; E66.9 Obesity, unspecified; Z68.32 Body mass index [BMI] 32.0-32.9, adult; K64.1 Second degree hemorrhoids; K64.4 Residual hemorrhoidal skin tags; K57.30 Diverticulosis of large intestine without perforation or abscess without bleeding; Z98.0 Intestinal bypass and anastomosis status
CPT/HCPCS: 45380; 88305; 99152; 99153; J7120

== ENCOUNTER → 2021-12-31 | Outpatient (CLI) | payer OTHER, SELFPAY ==
[2021-12-31 08:59] LABS: Bacteria 0 SEEN /hpf (None Seen); Mucous, Urine 0 SEEN /hpf (<or=2+); Red Blood Cells-Urine 0 SEEN /hpf (0-5)
[2021-12-31 12:16] LABS: Absolute Lymphocyte Count 1.73 X10^3/uL (0.83-4.51); Absolute Neutrophil Count 4.6 X10^3/uL (2.0-7.7); Basophil# 0.05 X10^3/uL; Basophil% 0.7 % (0-1); Eosinophil# 0.62 X10^3/uL; Eosinophils% 8.2 % (0-5); Hematocrit 41.3 % (37-47); Hemoglobin 13.8 g/dL (12.0-15.0); Lymphocyte # 1.73 X10^3/ul (0.83-4.51); Lymphocyte % 22.9 % (19-41); Mean Corp Hgb Conc 33.4 g/dL (32-36); Mean Corpuscular Hgb 31.1 pg (27.0-32.0); Mean Platelet Vol. 10.7 fl (6.2-12.0); Monocyte% 7.9 % (0-10); NRBC Flagged by Analyzer 0 % (0-5); Neutrophil # 4.55 X10^3/uL (2.7-7.7); Platelet Count 377 K/mm3 (150-450); RBC Distribution Width CV 12.4 % (11.6-14.6); RBC Distribution Width SD 42.3 fl (35.1-43.9); Red Blood Count 4.44 M/mm3 (4.2-5.4); White Blood Count 7.6 K/mm3 (4.4-11.0)
[2021-12-31 12:21] LABS: Color, Urine Yellow (Yellow); Glucose, Dipstick Normal (Normal); Ketone-Dipstick Negative (Negative); Leukocyte Esterase-Dipstick 25 /ul (Negative); Nitrite-Dipstick Negative (Negative); Occult Blood-Urine Negative /ul (Negative); Protein-Dipstick Negative (Negative); Urine Bilirubin Dipstick Negative (Negative); Urine Clarity Sl. Cloudy (Clear); Urine Urobilinogen Normal (Normal)
[2021-12-31 12:26] LABS: White Blood Cells 0-5 SEEN /hpf (0-5)
[2021-12-31 12:27] LABS: Squamous Epithelial Cells - UA 0-5 SEEN /hpf (5-10)
[2021-12-31 12:32] LABS: ALB/GLOB Ratio 1.1 RATIO (0.9-2.4); AST(SGOT) 26 U/L (15-37); Alanine Aminotransfer ALT/SGPT 27 U/L (13-56); Albumin, Serum 3.9 g/dL (3.2-5.0); Alkaline Phosphatase 92 U/L (45-117); Anion Gap 5 (5-15); BUN 18 mg/dL (7-18); Calcium,Total 9.7 mg/dL (8.5-10.1); Chloride 105 mmol/L (98-107); Cholesterol 207 mg/dL (200); Creatinine, Serum 0.67 mg/dL (0.55-1.02); EST Glomerular Filtration Rate 96 mL/min (>60); Est Glom Filt Rate - Afr Amer 116 mL/min (>60); Globulin 3.6 g/dL (2.2-4.2); Glucose 97 mg/dL (74-106); High Density Lipoprotein 66 mg/dL; Potassium 4.3 mmol/L (3.5-5.1); Protein, Total 7.5 g/dL (6.4-8.2); Sodium Level 139 mmol/L (136-145); Triglycerides 127 mg/dL; Very Low Density Lipoprotein 25 mg/dL (5-40)
== END | disposition home or self-care (01) ==
LOC: BIMLAB 08:02
PROVIDERS: PCP Internal Medicine; Referring Provider Internal Medicine; Visit Provider Internal Medicine
DX: E78.5 Hyperlipidemia, unspecified (principal); I10 Essential (primary) hypertension
CPT/HCPCS: 36415; 80053; 80061; 81001; 85025

== ENCOUNTER → 2022-05-25 | Outpatient (CLI) | payer OTHER, SELFPAY ==
[2022-05-25 10:20] LABS: Bacteria 0 SEEN /hpf (None Seen); Mucous, Urine 0 SEEN /hpf (<or=2+)
[2022-05-25 10:38] LABS: Color, Urine Yellow (Yellow); Glucose, Dipstick Normal (Normal); Ketone-Dipstick Negative (Negative); Leukocyte Esterase-Dipstick 500 /ul (Negative); Nitrite-Dipstick Negative (Negative); Occult Blood-Urine 10 /ul (Negative); Protein-Dipstick Negative (Negative); Urine Bilirubin Dipstick Negative (Negative); Urine Clarity Sl. Cloudy (Clear); Urine Urobilinogen Normal (Normal)
[2022-05-25 10:46] LABS: Red Blood Cells-Urine 0-5 SEEN /hpf (0-5); Squamous Epithelial Cells - UA 0-5 SEEN /hpf (5-10); White Blood Cells 25-50 SEEN /hpf (0-5)
== END | disposition home or self-care (01) ==
LOC: LABSPEC 10:12
PROVIDERS: PCP Internal Medicine; Referring Provider Physician Assistant Surgical; Visit Provider Physician Assistant Surgical
DX: N39.0 Urinary tract infection, site not specified (principal)
CPT/HCPCS: 81001; 87086; 87088

== ENCOUNTER → 2022-05-30 | Outpatient (CLI) | payer OTHER, SELFPAY ==
[2022-05-30 13:32] LABS: Hemoglobin A1c 5.6 % (3.8-5.6)
== END | disposition home or self-care (01) ==
LOC: BIMLAB 07:58
PROVIDERS: PCP Internal Medicine; Referring Provider Internal Medicine; Visit Provider Internal Medicine
DX: R73.03 Prediabetes (principal)
CPT/HCPCS: 36415; 83036

== ENCOUNTER → 2022-06-08 | Outpatient (CLI) | payer OTHER, SELFPAY ==
--- NOTE | 2022-06-08 11:55 | RAD_ITS ---
EXAM: XR ABDOMEN, 1 VIEW CLINICAL INDICATION: right flank pain TECHNIQUE: Frontal supine view of the abdomen/pelvis. This report was created using [employer] report generation technology. COMPARISON: None. FINDINGS: LOWER THORAX: No acute pathology. GASTROINTESTINAL TRACT: Unremarkable. Non-obstructive. No bowel or stomach distention. ORGANS: Unremarkable as visualized. No organomegaly. No abnormal calcifications. BONES/JOINTS: Degenerative findings in the lumbar spine. SOFT TISSUES: No acute pathology. RAD/Abdomen Single View IMPRESSION: No acute findings. Electronically Signed: Moises Barragan MD at 16:58 EST ,
[2022-06-08 15:32] LABS: Bacteria 0 SEEN /hpf (None Seen); Mucous, Urine 0 SEEN /hpf (<or=2+); Red Blood Cells-Urine 0 SEEN /hpf (0-5)
[2022-06-08 16:46] LABS: Color, Urine Straw (Yellow); Glucose, Dipstick Normal (Normal); Ketone-Dipstick Negative (Negative); Leukocyte Esterase-Dipstick 25 /ul (Negative); Nitrite-Dipstick Negative (Negative); Occult Blood-Urine Negative /ul (Negative); Protein-Dipstick Negative (Negative); Urine Bilirubin Dipstick Negative (Negative); Urine Clarity Clear (Clear); Urine Urobilinogen Normal (Normal); Urine pH 6.5 (5.0 - 8.0)
[2022-06-08 19:29] LABS: Squamous Epithelial Cells - UA 0-5 SEEN /hpf (5-10); White Blood Cells 0-5 SEEN /hpf (0-5)
== END | disposition home or self-care (01) ==
PROVIDERS: PCP Internal Medicine; Visit Provider Nurse Practitioner Family
DX: R10.9 Unspecified abdominal pain (principal)
CPT/HCPCS: 74018; 81001; 87086

== ENCOUNTER → 2022-06-24 | Outpatient (CLI) | payer OTHER, SELFPAY ==
--- NOTE | 2022-06-24 13:12 | ECHOD_ITS ---
Reason For Study: Arrhythmia Procedure This was a 2D Doppler, Color Flow transthoracic echocardiogram. Exam performed in department. Left Ventricle Normal LV size. Left ventricular systolic function is normal. The estimated ejection fraction is 65 %. Stage 1 diastolic dysfunction. No regional wall motion abnormalities noted. Right Ventricle Normal RV size. Normal systolic function. Atria Normal left atrium. Normal right atrium. Mitral Valve Normal mitral valve. Tricuspid Valve Normal tricuspid valve. Aortic Valve Normal aortic valve. Pulmonic Valve Normal pulmonic valve. Great Vessels Normal aortic root. The pulmonary artery is normal size. Normal inferior vena cava. Pericardium/Pleural No pericardial effusion. MMode/2D Measurements & Calculations LVIDd: 3.7 cm IVSd: 1.2 cm LA dimension: 3.7 cm LVIDs: 2.1 cm LVPWd: 1.2 cm RVDd: 3.2 cm FS: 41.2 % LAV(MOD-bp): 45.8 ml LA A4 area: 16.1 cm2 RA A4 area: 12.8 cm2 LAV(MOD-bp) Indexed: 23.5 ml/m2 LAV(MOD-sp2): 47.3 ml LAV(MOD-sp4): 43.0 ml Time Measurements MV dec time: 0.24 sec Doppler Measurements & Calculations MV E max genaro: 59.2 cm/sec Lat Peak E' Genaro: 11.3 cm/sec Med Peak E' Genaro: 9.9 cm/sec MV A max genaro: 82.3 cm/sec E/E' lat: 5.2 E/E' med: 6.0 MV E/A: 0.72 MV V2 max: 101.0 cm/sec MV P1/2t max genaro: 80.6 cm/sec Ao V2 max: 178.0 cm/sec MV max P.1 mmHg MV P1/2t: 86.6 msec Ao max P.7 mmHg MV V2 mean: 49.2 cm/sec MV dec slope: 272.6 cm/sec2 Ao V2 mean: 115.4 cm/sec MV mean P.2 mmHg MVA(P1/2t): 2.5 cm2 Ao mean P.2 mmHg MV V2 VTI: 24.8 cm Ao V2 VTI: 35.7 cm LV V1 max: 134.9 cm/sec PA V2 max: 97.8 cm/sec PI end-d genaro: 74.1 cm/sec LV V1 max P.3 mmHg ECHO/Echo Complete Interpretation Summary Normal LV size. Left ventricular systolic function is normal. The estimated ejection fraction is 65 %. Stage 1 diastolic dysfunction. Ordering Physician: Husam Sanchez Referring Physician: Camille Chappell Performed By: Keny Hayden RCS
== END | disposition home or self-care (01) ==
PROVIDERS: PCP Internal Medicine; Referring Provider Internal Medicine Cardiovascular Disease; Visit Provider Internal Medicine Cardiovascular Disease
DX: I10 Essential (primary) hypertension (principal); R00.2 Palpitations
CPT/HCPCS: 93225; 93226; 93306

== ENCOUNTER → 2022-11-07 | Outpatient (CLI) | payer OTHER, SELFPAY ==
--- NOTE | 2022-11-07 09:06 | BI_ITS ---
MAMMOGRAPHY - BILATERAL SCREENING REASON FOR EXAM: Female, 62 years old. Routine annual screening examination. PERTINENT HISTORY: Non-contributory. Remote history of prior bilateral excisional breast biopsies. TECHNIQUE: Digital bilateral breast ob (3D mammographic acquisition) in the CC and MLO projections. 2-D mediolateral oblique (MLO) and craniocaudad (CC) views of both breasts were obtained. CAD: Full Field Digital Mammography with Computer Added Detection was performed. COMPARISON: Mammogram from 11/04/2021, 10/29/2020. FINDINGS: Breast Composition: There are scattered areas of fibroglandular density. There are no dominant masses or suspicious calcifications. Stable biopsy marker in the right lower inner breast. Stable scattered benign-appearing bilateral breast calcifications. Stable small benign-appearing bilateral axillary lymph nodes. No other significant abnormalities are identified. There has been no significant change since the prior study. BI/SCRN MAMM (CAD)W/BO BILAT IMPRESSION: Stable bilateral screening mammogram. Yearly follow-up mammogram recommended. (A) ASSESSMENT CATEGORY: BIRADS Category 2: Benign. A letter regarding these results will be sent to the patient by the facility within 30 days. Approximately 10% of breast cancers are not detected by mammography. A normal mammogram should not delay biopsy of a clinically suspicious abnormality. Electronically Signed: Christian Ambriz MD at 15:25 EDT ,
== END | disposition home or self-care (01) ==
LOC: OPBI 09:04
PROVIDERS: PCP Internal Medicine; Referring Provider Registered Nurse; Visit Provider Registered Nurse
DX: Z12.31 Encounter for screening mammogram for malignant neoplasm of breast (principal)
CPT/HCPCS: 77063; 77067

== ENCOUNTER 2022-11-17 10:33 | Emergency (ER) | payer OTHER, SELFPAY ==
--- NOTE | 2022-11-17 10:35 | ED.RN ---
PT WANTS TO BE SEEN RIGHT AWAY. WANTS TO WAIT OUTSIDE TILL CAN SEE HER.
[2022-11-17 10:36] VITALS: BP 180/100; PULSE 54; RESP 14; TEMP 36.6; O2SAT 98; BMI 34.6
--- NOTE | 2022-11-17 11:22 | EDS_ITS ---
HPI <TIARRA Walls - Last Filed: 11/17/22 16:29> History of Present Illness Chief Complaint: Upper Extremity Injury Narrative Narrative: Patient presenting today with pain, slight edema, and slight erythema to the distal aspect of her right index finger that she has had since last night. She reports that it does hurt to bend at the DIP joint. She denies any history of gout and did not injure her finger in any way. She did notice a small opening i n the skin near the DIP joint and is not sure if she got bit by a bug. She denies any fever, chills. She denies any history of diabetes. PFS <TIARRA Walls - Last Filed: 11/17/22 16:29> REPLACED BY [facility] Medical History Abrasion of right heel Acute cystitis Acute sinusitis, unspecified Arthritis Asthma Back pain Back pain Borderline type 2 diabetes mellitus Colon cancer screening colon surgery-diverticulitis Fatty liver Flu vaccine need Health care maintenance High cholesterol HX: benign breast biopsy Hypertension Meningioma Osteoporosis Preventative health care Right flank pain Shoulder pain Sinusitis SOB (shortness of breath) Vaccine counseling Vitamin D deficiency Home Medications garlic 1,000 mg capsule 1,000 mg PO .QID 11/09/18 [History Last Taken Unknown] albuterol sulfate 90 mcg/actuation aerosol inhaler 2 puff inhalation Q4H PRN shortness of breath or wheezing #17 grams 08/26/22 [Rx Last Taken Unknown] cholecalciferol (vitamin D3) 1,250 mcg (50,000 unit) capsule 50,000 unit PO QWEEK #13 caps 08/26/22 [Rx Last Taken Unknown] cyclobenzaprine 10 mg tablet 5 - 10 mg PO TID PRN muscle spasm #30 tabs 08/26/22 [Rx Last Taken Unknown] dicyclomine 20 mg tablet 20 mg PO BID PRN gi spasms #60 tabs 08/26/22 [Rx Last Taken Unknown] levocetirizine 5 mg tablet (Xyzal) 5 mg PO QPM PRN allergy symptoms #30 tabs 08/26/22 [Rx Last Taken Unknown] methenamine hippurate 1 gram tablet (Hiprex) 1 g PO BID #180 tabs 08/26/22 [Rx Last Taken Unknown] polyethylene glycol 3350 17 gram/dose oral powder (Miralax) 17 g PO DAILY PRN constipation 3 months #850 grams 08/26/22 [Rx Last Taken Unknown] propranolol 10 mg tablet 10 mg PO BID #180 tabs 08/26/22 [Rx Last Taken Unknown] rosuvastatin 20 mg tablet (Crestor) 20 mg PO DAILY #90 tabs 08/26/22 [Rx Last Taken Unknown] fluconazole 150 mg tablet 150 mg PO Q3D 2 doses #2 tabs 09/28/22 [Rx Last Taken Unknown] amoxicillin 875 mg-potassium clavulanate 125 mg tablet 1 tab PO BID 7 days #14 tabs 11/17/22 [Rx Last Taken Unknown] Allergy/AdvReac Type Severity Reaction Status Date / Time cephalexin monohydrate Allergy Severe Anaphylaxis Verified 11/17/22 10:35 [From Keflex] norfloxacin Allergy Severe Rash Verified 11/17/22 10:35 shellfish derived Allergy Severe TONGUE Verified 11/17/22 10:35 [seafood - shellfish] SWELLING Latex, Natural Rubber Allergy Mild Itching Verified 11/17/22 10:35 metoprolol AdvReac Intermediate Sneezing Verified 11/17/22 10:35 and nasal congestion isopropyl alcohol AdvReac Mild red Verified 11/17/22 10:35 Family History Uncle Colon cancer Grandmother Mouth cancer Uterine cancer Mother Hypertension Other Lung cancer Surgical History History of section History of tonsillectomy Hx of appendectomy Social History Smoking Status: Former smoker how long ago did patient quit smoking: quit 15 years alcohol intake: never substance use type: does not use caffeine: Yes Type: coffee Number of servings: 1 what type of physical activity do you participate in: none seatbelt use: always do you feel safe at home: Yes additional social history: Single ROS <TIARRA Walls - Last Filed: 11/17/22 16:29> ROS ED Constitutional Constitutional ED: Denies chills, fever(s) or sweats Cardiovascular Cardiovascular: Denies chest pain or palpitations Respiratory/Chest Respiratory/Chest: Denies cough or dyspnea Gastrointestinal Gastrointestinal: Denies abdominal pain, nausea or vomiting Musculoskeletal Musculoskeletal: Reports arthralgias; Denies myalgias Integumentary Denies abscess, Abrasions or rash Neurologic Neurologic: Denies paresthesias or weakness Psychiatric Psychiatric: Denies anxiety or depression EXAM <TIARRA Walls - Last Filed: 11/17/22 16:29> Physical Exam Const Vital Signs: 11/17/22 10:36 Temperature 98 F Temperature Source Temporal Pulse Rate 54 L Respiratory Rate 14 Blood Pressure 180/100 H Blood Pressure Mean 126 Pulse Ox 98 Oxygen Delivery Method Room Air Positive well nourished, well developed and no apparent distress General Appearance ED: well developed HEENT Reports normocephalic and head/scalp atraumatic Mouth ED: Yes moist mucous membranes normal Eyes PERRL and EOMs intact bilaterally Neck full ROM and supple Chest Wall inspection of chest normal Resp normal respiratory effort and clear to auscultation bilaterally Cardio regular rate and regular rhythm GI soft to palpation, non-tender, non-distended and no masses Back/Spine normal ROM and normal to inspection Extremity Extremity Narrative: Slight erythema and edema near the PIP joint of the right index finger. It does not seem consistent with gout but more so cellulitis. There is a small opening in the skin to the dorsal aspect of the PIP joint that looks like a small bug bite. No lymphatic streaking, radial pulses 2+ and equal bilaterally, good capillary refill, sensation intact. Patient is able to flex and extend finger at the MCP, DIP, and PIP joints. Neuro oriented x3, CN's II-XII intact bilaterally, moves all extremities, no focal motor deficits and no sensory deficits noted Sensorium / Orientation: awake and alert Psych mental status grossly normal and thought process normal Skin no rashes or lesions noted and no wounds MDM <TIARRA Walls - Last Filed: 11/17/22 16:29> [facility] MDM Narrative Medical decision making narrative: Slight erythema and edema near the PIP joint of the right index finger. It does not seem consistent with gout but more so cellulitis. There is a small opening in the skin to the dorsal aspect of the PIP joint that looks like a small bug bite. No lymphatic streaking. She is well-appearing and in no acute distress. She is afebrile. She denies any past history of diabetes. She will be started on Augmentin as she reports that she tolerates that antibiotic well. She has been given return instructions will be discharged home in stable condition. She is comfortable with plan. <Dr. Suraj Rutherford MD - Last Filed: 11/17/22 16:42> [facility] Treatment and Re-Evaluation Narrative: I have personally performed a face to face assessment of the patient and have reviewed the ROJELIO Note. I performed a substantive portion of the visit including all aspects of the following. My mason findings include: History: Patient complains of right index finger pain for couple days. No known trauma or impact. But she states it seems a little swollen. No fevers chills sweats. No history of recent infections. No history of gout. Exam: Patient does have a little break in the skin at the distal aspect on the dorsal lateral torsion. There is some erythema around it. But there is none on the opposite side of the finger. There is no indication of swelling in the joint. It looks like soft tissue just on one side. Knavel's signs are negative. This does not look vesicular. Does not look like tashia. This is not quite distal enough to be a paronychia. But it does look like there is some local cellulitis from a break in the skin or small cut or possible bite. Medical Decision Making: Because she is having pain and progressive redness and swelling we will initiate antibiotics. We discussed multiple reasons that would bring her back including swelling of the whole finger red streaking up the finger fevers chills or any other concerns. Discharge Plan Triage Chief Complaint: Upper Extremity Injury ED Midlevel Provider: Renetta Woo ED Provider: Suraj Rutherford Dx/Rx/DC Orders Clinical Impression: Cellulitis of finger Instructions: Cellulitis Dc Prescriptions: New amoxicillin-pot clavulanate 875-125 mg tablet 1 tab PO BID 7 Days Qty: 14 0RF No Action garlic 1,000 mg capsule 1,000 mg PO .QID levocetirizine [Xyzal] 5 mg tablet 5 mg PO QPM PRN (Reason: allergy symptoms) Qty: 30 1RF rosuvastatin [Crestor] 20 mg tablet 20 mg PO DAILY Qty: 90 3RF propranolol 10 mg tablet 10 mg PO BID Qty: 180 1RF polyethylene glycol 3350 [Miralax] 17 gram/dose powder 17 g PO DAILY PRN (Reason: constipation) 90 Days Qty: 850 3RF methenamine hippurate [Hiprex] 1 gram tablet 1 g PO BID Qty: 180 1RF dicyclomine 20 mg tablet 20 mg PO BID PRN (Reason: gi spasms) Qty: 60 3RF cyclobenzaprine 10 mg tablet 5 - 10 mg PO TID PRN (Reason: muscle spasm) Qty: 30 0RF cholecalciferol (vitamin D3) 1,250 mcg (50,000 unit) capsule 50,000 unit PO QWEEK Qty: 13 3RF albuterol sulfate 90 mcg/actuation HFA aerosol inhaler 2 puff inhalation Q4H PRN (Reason: shortness of breath or wheezing) Qty: 17 1RF Rx Instructions: INHALE 2 PUFFS BY MOUTH EVERY 4 HOURS NEEDED FOR SHORTNESS OF BREATH/WHEEZING fluconazole 150 mg tablet 150 mg PO Q3D Qty: 2 0RF Rx Instructions: Repeat in 72 hours if symptoms persists Primary Care Provider: Camille Chappell Referrals: Camille Chappell MD [Primary Care Provider] - 3-5 Days Activity Restrictions/Additional Instructions: Take antibiotic as directed and return for any worsening of symptoms. Follow-up with your PCP. Disposition Disposition: Home, Self Care Discharge Date/Time: 11/17/22 12:28
[2022-11-17 12:27] VITALS: BP 118/72; PULSE 84; RESP 16; TEMP 36.7; O2SAT 98
== END 2022-11-17 12:28 | disposition home or self-care (01) ==
LOC: ED 12:17
PROVIDERS: Emergency Provider Emergency Medicine; PCP Internal Medicine; Visit Provider Emergency Medicine
DX: L03.011 Cellulitis of right finger (principal); I10 Essential (primary) hypertension; E78.00 Pure hypercholesterolemia, unspecified; Z87.891 Personal history of nicotine dependence; J45.909 Unspecified asthma, uncomplicated; Z79.899 Other long term (current) drug therapy; Z90.49 Acquired absence of other specified parts of digestive tract
CPT/HCPCS: 99282

== ENCOUNTER → 2022-12-02 | Outpatient (CLI) | payer OTHER, SELFPAY ==
[2022-12-02 12:09] LABS: Absolute Lymphocyte Count 1.46 X10^3/uL (0.83-4.51); Absolute Neutrophil Count 4.6 X10^3/uL (2.0-7.7); Basophil# 0.03 X10^3/uL; Basophil% 0.4 % (0-1); Eosinophil# 0.47 X10^3/uL; Eosinophils% 6.5 % (0-5); Hematocrit 42.7 % (37-47); Hemoglobin 13.8 g/dL (12.0-15.0); Lymphocyte # 1.46 X10^3/ul (0.83-4.51); Lymphocyte % 20.3 % (19-41); Mean Corp Hgb Conc 32.3 g/dL (32-36); Mean Corpuscular Hgb 30.3 pg (27.0-32.0); Mean Corpuscular Volume 93.6 fL (81-99); Mean Platelet Vol. 10.3 fl (6.2-12.0); Monocyte# 0.62 X10^3/uL; Monocyte% 8.6 % (0-10); NRBC Flagged by Analyzer 0 % (0-5); Neutrophil % 63.9 % (47-70); Platelet Count 405 K/mm3 (150-450); RBC Distribution Width CV 12.8 % (11.6-14.6); RBC Distribution Width SD 43.8 fl (35.1-43.9); Red Blood Count 4.56 M/mm3 (4.2-5.4); White Blood Count 7.2 K/mm3 (4.4-11.0)
[2022-12-02 12:23] LABS: AST(SGOT) 22 U/L (15-37); Alanine Aminotransfer ALT/SGPT 21 U/L (13-56); Albumin, Serum 3.8 g/dL (3.2-5.0); Alkaline Phosphatase 92 U/L (45-117); Anion Gap 7 (5-15); BUN 17 mg/dL (7-18); BUN/Creat Ratio 27.7 RATIO (10-20); Chloride 107 mmol/L (98-107); Cholesterol 199 mg/dL (200); Creatinine, Serum 0.61 mg/dL (0.55-1.02); EST Glomerular Filtration Rate 105 mL/min (>60); Est Glom Filt Rate - Afr Amer 127 mL/min (>60); Globulin 3.8 g/dL (2.2-4.2); Glucose 97 mg/dL (74-106); High Density Lipoprotein 69 mg/dL; Protein, Total 7.6 g/dL (6.4-8.2); Sodium Level 141 mmol/L (136-145); Triglycerides 129 mg/dL; Very Low Density Lipoprotein 26 mg/dL (5-40)
[2022-12-02 12:31] LABS: Hemoglobin A1c 5.6 % (3.8-5.6)
== END | disposition home or self-care (01) ==
LOC: BIMLAB 08:35
PROVIDERS: PCP Internal Medicine; Referring Provider Internal Medicine; Visit Provider Internal Medicine
DX: I10 Essential (primary) hypertension (principal); R73.03 Prediabetes
CPT/HCPCS: 36415; 80053; 80061; 83036; 85025

== ENCOUNTER → 2023-04-24 | Outpatient (CLI) | payer OTHER, SELFPAY ==
--- NOTE | 2023-04-24 15:40 | RAD_ITS ---
EXAM: XR CHEST, 2 VIEWS CLINICAL INDICATION: cough, sob TECHNIQUE: Frontal and lateral views of the chest. COMPARISON: 03/19/2016 FINDINGS: LUNGS AND PLEURAL SPACES: Unremarkable. No consolidation or edema. No pneumothorax. No effusion. HEART: Unremarkable. Cardiac silhouette not enlarged. MEDIASTINUM: Central airways and mediastinal contour are unremarkable. BONES/JOINTS: Unremarkable. SOFT TISSUES: Unremarkable. RAD/Chest PA and Lateral IMPRESSION: No radiographic evidence of acute cardiopulmonary disease. Electronically Signed: Wilmar Sepulveda MD at 17:06 EST ,
== END | disposition home or self-care (01) ==
PROVIDERS: PCP Internal Medicine; Referring Provider Physician Assistant; Visit Provider Physician Assistant
DX: R05.9 Cough, unspecified (principal); R06.02 Shortness of breath
CPT/HCPCS: 71046

== ENCOUNTER → 2023-05-08 | Outpatient (CLI) | payer OTHER, SELFPAY | END | disposition home or self-care (01) | LOC: LABSPEC 10:48 | PROVIDERS: PCP Internal Medicine; Referring Provider Internal Medicine; Visit Provider Internal Medicine | DX: J04.0 Acute laryngitis (principal) | CPT/HCPCS: 87635 ==

== ENCOUNTER 2023-05-13 13:33 | Emergency (ER) | payer OTHER, SELFPAY ==
[2023-05-13 13:36] VITALS: BP 95/80; PULSE 63; RESP 18; TEMP 36; O2SAT 98; BMI 34.7
--- NOTE | 2023-05-13 13:53 | EX.ED.DYSGE1 ---
HPI <TIARRA Garcia - Last Filed: 05/13/23 16:21> History of Present Illness Chief Complaint: Abd Pain Narrative Narrative: 63-year-old female with PMH of HTN, HLD presents with right sided pain. 6 days ago she developed fever and cough and tested positive for COVID. Her doctor called in [facility] the same day and she completed it yesterday. 1 day after starting the antiviral she developed right upper quadrant abdominal pain and right flank pain. The pain is constant but worse with eating. She has nausea but no vomiting. Her fever from COVID has resolved. She was having normal bowel movements that felt a little hard but today she had bright yellow diarrhea. No urinary symptoms. Surgical history includes appendectomy, , colon resection for diverticulitis. PFSH <TIARRA Garcia - Last Filed: 05/13/23 16:21> [facility] Medical History Abrasion of right heel Acute cystitis Acute sinusitis, unspecified Arthritis Asthma Back pain Back pain Borderline type 2 diabetes mellitus Colon cancer screening colon surgery-diverticulitis Fatty liver Flu vaccine need Health care maintenance High cholesterol History of cellulitis HX: benign breast biopsy Hypertension Meningioma Osteoporosis Preventative health care Recurrent sinus infections Right flank pain Shoulder pain Sinusitis SOB (shortness of breath) Vaccine counseling Vitamin D deficiency Home Medications garlic 1,000 mg capsule 1,000 mg PO .QID 11/09/18 [History Last Taken 05/13/23] cholecalciferol (vitamin D3) 1,250 mcg (50,000 unit) capsule 50,000 unit PO QWEEK #13 caps 08/26/22 [Rx Last Taken Unknown] levocetirizine 5 mg tablet (Xyzal) 5 mg PO QPM PRN allergy symptoms #30 tabs 08/26/22 [Rx Last Taken Unknown] polyethylene glycol 3350 17 gram/dose oral powder (Miralax) 17 g PO DAILY PRN constipation 3 months #850 grams 08/26/22 [Rx Last Taken Unknown] rosuvastatin 20 mg tablet (Crestor) 20 mg PO DAILY #90 tabs 08/26/22 [Rx Last Taken 05/13/23] methenamine hippurate 1 gram tablet (Hiprex) 1 g PO BID #180 tabs 02/23/23 [Rx Last Taken 05/13/23] albuterol sulfate 90 mcg/actuation aerosol inhaler 2 puff inhalation Q4H PRN shortness of breath or wheezing #17 grams 04/20/23 [Rx Last Taken Unknown] propranolol 10 mg tablet 10 mg PO BID #180 tabs 04/20/23 [Rx Last Taken 05/13/23] prednisone 20 mg tablet 20 mg PO BID #10 tabs 04/24/23 [Rx Last Taken 05/13/23] albuterol sulfate 2.5 mg/3 mL (0.083 %) solution for nebulization 2.5 mg (3 mL) inhalation Q6H #180 mL 05/04/23 [Rx Last Taken Unknown] fluticasone propionate 50 mcg/actuation nasal spray,suspension (Flonase Allergy Relief) 1 spray intranasal DAILY #16 grams 05/04/23 [Rx Last Taken 05/13/23] nebulizers (Airs Disposable Nebulizer misc) #1 ea 05/04/23 [Rx Last Taken Unknown] nirmatrelvir 300 mg (150 mg x2)-ritonavir 100 mg tablet,dose pack (Paxlovid) See Rx Instructions PO .COMPLEX #30 tabs 05/08/23 [Rx Last Taken 05/13/23] Allergy/AdvReac Type Severity Reaction Status Date / Time cephalexin monohydrate Allergy Severe Anaphylaxis Verified 05/13/23 13:34 [From Keflex] norfloxacin Allergy Severe Rash Verified 05/13/23 13:34 shellfish derived Allergy Severe TONGUE Verified 05/13/23 13:34 [seafood - shellfish] SWELLING Latex, Natural Rubber Allergy Mild Itching Verified 05/13/23 13:34 doxycycline Allergy Swelling Verified 05/13/23 13:36 metoprolol AdvReac Intermediate Sneezing Verified 05/13/23 13:34 and nasal congestion isopropyl alcohol AdvReac Mild red Verified 05/13/23 13:34 Family History Uncle Colon cancer Grandmother Mouth cancer Uterine cancer Mother Hypertension Other Lung cancer Surgical History History of section History of tonsillectomy Hx of appendectomy Social History Smoking Status: Former smoker how long ago did patient quit smoking: quit 15 years alcohol intake: never substance use type: does not use caffeine: Yes Type: coffee Number of servings: 1 what type of physical activity do you participate in: none seatbelt use: always do you feel safe at home: Yes additional social history: Single ROS <TIARRA Garcia - Last Filed: 05/13/23 16:21> ROS ED ROS Narrative Constitutional: Positive for fever. CVS: Negative for palpitations, chest pain. Respiratory: Positive for cough. Negative for shortness of breath. GI: Positive for abdominal pain, nausea, diarrhea. Negative for vomiting, melena, hematochezia. : Negative for dysuria, hematuria or frequency. Neuro: Negative for headache. EXAM <TIARRA Garcia - Last Filed: 05/13/23 16:21> Physical Exam Narrative Exam Narrative: CONST: Patient sitting in no acute distress. EYES: Normal inspection. ENT: Normal inspection, moist mucous membranes. NECK: Normal inspection. RESP: No respiratory distress, CTAB. CVS: Regular rate and rhythm, no murmur, no gallop. Tender to palpation right anterior lower ribs, no deformity or crepitus. ABD: Soft with RUQ tenderness but negative Cavanaugh sign, no guarding or rebound, nondistended, no hepatosplenomegaly. Back: Normal inspection, no CVA tenderness. SKIN: Color normal, no rash, warm, dry, intact. EXTREMITIES: Normal appearance, no pedal edema. NEURO: Oriented x4. PSYCH: Normal affect. Const Vital Signs: 05/13/23 13:36 05/13/23 16:00 05/13/23 16:30 Temperature 96.8 F L 98.3 F Temperature Source Temporal Pulse Rate 63 60 63 Respiratory Rate 18 16 18 Blood Pressure 95/80 115/72 118/70 Blood Pressure Mean 85 86 86 Pulse Ox 98 99 99 Oxygen Delivery Method Room Air Room Air <Dr. Charles Owen DO - Last Filed: 05/13/23 16:57> Physical Exam Const Vital Signs: 05/13/23 13:36 05/13/23 16:00 05/13/23 16:30 Temperature 96.8 F L 98.3 F Temperature Source Temporal Pulse Rate 63 60 63 Respiratory Rate 18 16 18 Blood Pressure 95/80 115/72 118/70 Blood Pressure Mean 85 86 86 Pulse Ox 98 99 99 Oxygen Delivery Method Room Air Room Air [facility] <TIARRA Garcia - Last Filed: 05/13/23 16:21> [facility] Narrative Medical decision making narrative: History gathered from: Patient and daughter over the speaker phone Patient has had COVID x 6 days and finished Paxlovid. She has had about 5 days of right upper abdominal and right flank pain. She appears well and nontoxic. BP is 95/80, otherwise normal vital signs. She is walking around the room and looks well. Normal heart and lung exam. She is tender over the right lower rib cage and right upper quadrant with a soft abdomen and no peritoneal signs. She also has right CVA tenderness. There is no skin changes or zoster. Differential includes pneumonia, musculoskeletal pain, gallbladder etiology, renal process, diverticulitis with recent diarrhea. CBC, CMP, lipase, and urinalysis are all normal. CT abdomen/pelvis shows no acute process. She is only had 1 episode of diarrhea and no risk factors for C. difficile due to recent cough and COVID a CXR was obtained and shows no acute process. Her pain improved after Toradol. I discussed we have not found an etiology. Since she is very tender over the right ribs and abdomen with light touch it may be musculoskeletal and I recommended ibuprofen as needed and follow-up with primary care. She was discharged in stable condition. Lab Data Attestation: I reviewed the patient's lab results. Labs: Laboratory Results - last 24 hr 05/13/23 05/13/23 14:00 14:45 WBC 8.8 RBC 4.76 Hgb 14.1 Hct 42.5 MCV 89.3 MCH 29.6 MCHC 33.2 RDW Std Deviation 42.6 RDW Coeff of Paola 13.0 Plt Count 338 MPV 9.3 Immature Gran % (Auto) 0.300 Neut % (Auto) 72.4 H Lymph % (Auto) 16.6 L Pennington % (Auto) 6.6 Eos % (Auto) 3.9 Baso % (Auto) 0.2 Absolute Neuts (auto) 6.4 Absolute Lymphs (auto) 1.46 Nucleated RBC % 0 Sodium 137 Potassium 4.2 Chloride 105 Carbon Dioxide 28.0 Anion Gap 4 L BUN 17 Creatinine 0.66 Estim Creat Clear Calc 76.32 Est GFR (MDRD) Af Amer 116 Est GFR (MDRD) Non-Af 96 BUN/Creatinine Ratio 25.6 H Glucose 106 Calcium 9.4 Total Bilirubin 0.50 AST 24 ALT 24 Alkaline Phosphatase 89 Total Protein 7.5 Albumin 3.7 Globulin 3.8 Albumin/Globulin Ratio 1.0 Lipase 47 Urine Color Straw Urine Clarity Sl. Cloudy Urine pH 6.0 Ur Specific Epworth 1.010 Urine Protein Negative Urine Glucose (UA) Normal Urine Ketones Negative Urine Occult Blood Negative Urine Nitrite Negative Urine Bilirubin Negative Urine Urobilinogen Normal Ur Leukocyte Esterase Negative Urine RBC 0 SEEN Urine WBC 0 SEEN Ur Squamous Epith Cells 0 SEEN Urine Bacteria 0 SEEN Urine Mucus 0 SEEN Radiography Diagnostic Testing: Clinical Impression(s) from Imaging Studies Abdomen/Pelvis CT 05/13/23 14:24 IMPRESSION: 1. No free air or free fluid or bowel dilatation is present. No inflammatory stranding is seen. A few scattered descending colonic diverticula are present but there is no evidence of acute diverticulitis. No abscess is seen. Suture material and anastomotic changes are present in the rectosigmoid colon from prior surgical intervention. 2. No hydronephrosis or large radiopaque kidney stones are present. 3. No visualized radiopaque gallstones or pericholecystic inflammation. Electronically Signed: Ketan Martin MD at 16:09 EST Reading Location ID and State: [address] [place] [address] , Service support , Chest X-Ray 05/13/23 14:25 IMPRESSION: Degenerative changes, as described above. No demonstrated acute cardiopulmonary process. Electronically Signed: Ketan Martin MD at 15:06 EST , ED attending interpretation of 2-view chest x-ray shows normal heart size, no acute infiltrate, edema, or effusion. <Dr. Charles Owen, DO - Last Filed: 05/13/23 16:57> [facility] MDM Narrative Medical decision making narrative: History gathered from: Patient and daughter over the speaker phone Patient has had COVID x 6 days and finished Paxlovid. She has had about 5 days of right upper abdominal and right flank pain. She appears well and nontoxic. BP is 95/80, otherwise normal vital signs. She is walking around the room and looks well. Normal heart and lung exam. She is tender over the right lower rib cage and right upper quadrant with a soft abdomen and no peritoneal signs. She also has right CVA tenderness. There is no skin changes or zoster. Differential includes pneumonia, musculoskeletal pain, gallbladder etiology, renal process, diverticulitis with recent diarrhea. CBC, CMP, lipase, and urinalysis are all normal. CT abdomen/pelvis shows no acute process. She is only had 1 episode of diarrhea and no risk factors for C. difficile due to recent cough and COVID a CXR was obtained and shows no acute process. Her pain improved after Toradol. I discussed we have not found an etiology. Since she is very tender over the right ribs and abdomen with light touch it may be musculoskeletal and I recommended ibuprofen as needed and follow-up with primary care. She was discharged in stable condition. I have personally performed a face to face assessment of the patient and have reviewed the ROJELIO Note. I performed a substantive portion of the visit including all aspects of the following. My mason findings include: History is 63-year-old female diagnosed with COVID 6 days ago is on Paxlovid. She notes some right upper quadrant right flank pain. She notes that the ribs are tender to palpation. She states the skin is not sensitive. She states that coughing does not make it worse. No current fevers. 1 episode of diarrhea. History of diverticulosis. Exam is a conflict and exam. She reports exquisite tenderness when I palpate the ribs in the right flank. She also complains of tenderness when I palpate the ribs anteriorly. When I palpate the right upper quadrant below the ribs she does not have pain but she does complain of pain when I put the ultrasound probe on her. There is no guarding or rebound. Medical Decison Making basic blood work is negative. CT of the pelvis is negative. My independent interpretation of the chest x-ray is no acute process. Patient is not tender over her gallbladder and I do not see any cholelithiasis or pericholecystic fluid on the bedside ultrasound. CT not with any definitive explanation for her pain. At this point I would recommend supportive care. Return if any concerns especially in the next 24 hours if worsening or new symptoms. If symptoms persist she will need another exam as well. History & Record Review Discussion w/independent historian: Patient, Family and Significant other Lab Data Labs: Laboratory Results - last 24 hr 05/13/23 05/13/23 14:00 14:45 WBC 8.8 RBC 4.76 Hgb 14.1 Hct 42.5 MCV 89.3 MCH 29.6 MCHC 33.2 RDW Std Deviation 42.6 RDW Coeff of Paola 13.0 Plt Count 338 MPV 9.3 Immature Gran % (Auto) 0.300 Neut % (Auto) 72.4 H Lymph % (Auto) 16.6 L Penning[place] % (Auto) 6.6 Eos % (Auto) 3.9 Baso % (Auto) 0.2 Absolute Neuts (auto) 6.4 Absolute Lymphs (auto) 1.46 Nucleated RBC % 0 Sodium 137 Potassium 4.2 Chloride 105 Carbon Dioxide 28.0 Anion Gap 4 L BUN 17 Creatinine 0.66 Estim Creat Clear Calc 76.32 Est GFR (MDRD) Af Amer 116 Est GFR (MDRD) Non-Af 96 BUN/Creatinine Ratio 25.6 H Glucose 106 Calcium 9.4 Total Bilirubin 0.50 AST 24 ALT 24 Alkaline Phosphatase 89 Total Protein 7.5 Albumin 3.7 Globulin 3.8 Albumin/Globulin Ratio 1.0 Lipase 47 Urine Color Straw Urine Clarity Sl. Cloudy Urine pH 6.0 Ur Specific Epworth 1.010 Urine Protein Negative Urine Glucose (UA) Normal Urine Ketones Negative Urine Occult Blood Negative Urine Nitrite Negative Urine Bilirubin Negative Urine Urobilinogen Normal Ur Leukocyte Esterase Negative Urine RBC 0 SEEN Urine WBC 0 SEEN Ur Squamous Epith Cells 0 SEEN Urine Bacteria 0 SEEN Urine Mucus 0 SEEN Radiography Diagnostic Testing: Clinical Impression(s) from Imaging Studies Abdomen/Pelvis CT 05/13/23 14:24 IMPRESSION: 1. No free air or free fluid or bowel dilatation is present. No inflammatory stranding is seen. A few scattered descending colonic diverticula are present but there is no evidence of acute diverticulitis. No abscess is seen. Suture material and anastomotic changes are present in the rectosigmoid colon from prior surgical intervention. 2. No hydronephrosis or large radiopaque kidney stones are present. 3. No visualized radiopaque gallstones or pericholecystic inflammation. Electronically Signed: Ketan Martin MD at 16:09 EST Reading Location ID and State: [facility] / [place] , Service support , Chest X-Ray 05/13/23 14:25 IMPRESSION: Degenerative changes, as described above. No demonstrated acute cardiopulmonary process. Electronically Signed: Ketan Martin MD at 15:06 EST , Discharge Plan Triage Chief Complaint: Abd Pain ED Midlevel Provider: Karis Caraballo ED Provider: Charles Owen Dx/Rx/DC Orders Clinical Impression: Acute right flank pain, Acute diarrhea Instructions: Communicating About Pain Prescriptions: No Action garlic 1,000 mg capsule 1,000 mg PO .QID levocetirizine [Xyzal] 5 mg tablet 5 mg PO QPM PRN (Reason: allergy symptoms) Qty: 30 1RF rosuvastatin [Crestor] 20 mg tablet 20 mg PO DAILY Qty: 90 3RF polyethylene glycol 3350 [Miralax] 17 gram/dose powder 17 g PO DAILY PRN (Reason: constipation) 90 Days Qty: 850 3RF cholecalciferol (vitamin D3) 1,250 mcg (50,000 unit) capsule 50,000 unit PO QWEEK Qty: 13 3RF prednisone 20 mg tablet 20 mg PO BID Qty: 10 0RF albuterol sulfate 2.5 mg /3 mL (0.083 %) solution for nebulization 2.5 mg inhalation Q6H Qty: 180 0RF fluticasone propionate [Flonase Allergy Relief] 50 mcg/actuation spray,suspension 1 spray intranasal DAILY Qty: 16 0RF Rx Instructions: administer into each nostril (DME) nebulizers [Airs Disposable Nebulizer] Misc See Rx Instructions .Route Qty: 1 0RF Rx Instructions: As directed methenamine hippurate [Hiprex] 1 gram tablet 1 g PO BID Qty: 180 1RF albuterol sulfate 90 mcg/actuation HFA aerosol inhaler 2 puff inhalation Q4H PRN (Reason: shortness of breath or wheezing) Qty: 17 1RF Rx Instructions: INHALE 2 PUFFS BY MOUTH EVERY 4 HOURS NEEDED FOR SHORTNESS OF BREATH/WHEEZING propranolol 10 mg tablet 10 mg PO BID Qty: 180 1RF Paxlovid 300 mg (150 mg x 2)-100 mg tablets,dose pack See Rx Instructions PO .COMPLEX Qty: 30 0RF Rx Instructions: take TWO 150 mg tablets of nirmatrelvir with ONE 100 mg tablet of ritonavir twice daily for 5 days PO Primary Care Provider: Camille Chappell Referrals: Camille Chappell MD [Primary Care Provider] - Activity Restrictions/Additional Instructions: Your tests are within normal limits. No treatment is causing her pain. I recommend ibuprofen every 6 hours and follow-up with your primary care doctor Disposition Disposition: Home, Self Care Discharge Date/Time: 05/13/23 16:31
[2023-05-13] MEDS: Ketorolac 15 MG/ML Vial IV (14:06)
[2023-05-13] MEDS: 0.9% Normal Saline (1000mL) 1,000 ML 999 ML IV (14:06)
[2023-05-13 14:09] LABS: Absolute Lymphocyte Count 1.46 X10^3/uL (0.83-4.51); Absolute Neutrophil Count 6.4 X10^3/uL (2.0-7.7); Basophil# 0.02 X10^3/uL; Basophil% 0.2 % (0-1); Eosinophil# 0.34 X10^3/uL; Eosinophils% 3.9 % (0-5); Hematocrit 42.5 % (37-47); Hemoglobin 14.1 g/dL (12.0-15.0); Lymphocyte # 1.46 X10^3/ul (0.83-4.51); Lymphocyte % 16.6 % (19-41); Mean Corp Hgb Conc 33.2 g/dL (32-36); Mean Corpuscular Hgb 29.6 pg (27.0-32.0); Mean Corpuscular Volume 89.3 fL (81-99); Mean Platelet Vol. 9.3 fl (6.2-12.0); Monocyte# 0.58 X10^3/uL; Monocyte% 6.6 % (0-10); NRBC Flagged by Analyzer 0 % (0-5); Neutrophil # 6.35 X10^3/uL (2.7-7.7); Neutrophil % 72.4 % (47-70); Platelet Count 338 K/mm3 (150-450); RBC Distribution Width SD 42.6 fl (35.1-43.9); Red Blood Count 4.76 M/mm3 (4.2-5.4); White Blood Count 8.8 K/mm3 (4.4-11.0)
--- NOTE | 2023-05-13 14:24 | CT_ITS ---
STUDY: CT ABDOMEN AND PELVIS WITH CONTRAST REASON FOR EXAM: Female, 63 years old. right flank pain, abdominal pain RADIATION DOSAGE (If Supplied By Facility): CTDIvol = ( 16.76 ) mGy, DLP = ( 974.61 ) mGycm TECHNIQUE: Transaxial images were obtained from the dome of the diaphragm to the symphysis pubis without oral contrast. ml of 100mL Isovue-370 contrast was administered. Sagittal and coronal images were reconstructed. Individualized dose optimization techniques were used for this CT. COMPARISON: None. FINDINGS: The visualized lung bases are unremarkable. The visualized portions of the heart are within normal limits. Normal liver. Tiny posterior subcortical cyst of the inferior aspect of the right lobe of the liver noted on image 37 and 38/115 series 2. Normal gallbladder and extrahepatic biliary system. No visualized radiopaque gallstones Normal spleen. Normal pancreas. Normal bilateral adrenal glands. Normal right kidney. Normal left kidney. No hydronephrosis or large radiopaque kidney stones are present. Normal visualized stomach. Normal small intestine. There is non-visualization of the appendix. No free air or free fluid or bowel dilatation is present. No inflammatory stranding is seen. A few scattered descending colonic diverticula are present but there is no evidence of acute diverticulitis. No abscess is seen. Suture material and anastomotic changes are present in the rectosigmoid colon from prior surgical intervention. Unremarkable uterus and adnexa. There is diffuse atherosclerotic calcification of the abdominal aorta, without a demonstrated aneurysm. Normal inferior vena cava. Normal retroperitoneum. Normal urinary bladder. Normal abdominal wall. There are diffuse degenerative changes of the visualized lumbar spine. Benign bone island of the L2 vertebral body noted. CT/Abdomen/Pelvis W IV Cont ONLY IMPRESSION: 1. No free air or free fluid or bowel dilatation is present. No inflammatory stranding is seen. A few scattered descending colonic diverticula are present but there is no evidence of acute diverticulitis. No abscess is seen. Suture material and anastomotic changes are present in the rectosigmoid colon from prior surgical intervention. 2. No hydronephrosis or large radiopaque kidney stones are present. 3. No visualized radiopaque gallstones or pericholecystic inflammation. Electronically Signed: Ketan Martin MD at 16:09 EST ,
--- NOTE | 2023-05-13 14:25 | RAD_ITS ---
STUDY: X-RAY CHEST REASON FOR EXAM: Female, 63 years old. cough TECHNIQUE: PA and lateral views of the chest. COMPARISON: April 24, 2023 FINDINGS: No visualized consolidation or new opacity. There are interstitial fibrotic changes of the lungs. There is no demonstrated pleural abnormality. Normal size heart. Normal mediastinum and alysia. Normal visualized pulmonary arteries. Normal visualized aortic arch and descending thoracic aorta. There are diffuse degenerative changes of the visualized thoracic spine. Normal visualized ribs, clavicles, and shoulders. There is no demonstrated abnormality of the visualized soft tissue structures of the upper abdomen. RAD/Chest PA and Lateral IMPRESSION: Degenerative changes, as described above. No demonstrated acute cardiopulmonary process. Electronically Signed: Ketan Martin MD at 15:06 EST ,
[2023-05-13 14:30] LABS: AST(SGOT) 24 U/L (15-37); Alanine Aminotransfer ALT/SGPT 24 U/L (13-56); Albumin, Serum 3.7 g/dL (3.2-5.0); Alkaline Phosphatase 89 U/L (45-117); Anion Gap 4 (5-15); BUN 17 mg/dL (7-18); BUN/Creat Ratio 25.6 RATIO (10-20); Calcium,Total 9.4 mg/dL (8.5-10.1); Chloride 105 mmol/L (98-107); Creatinine, Serum 0.66 mg/dL (0.55-1.02); EST Glomerular Filtration Rate 96 mL/min (>60); Est Glom Filt Rate - Afr Amer 116 mL/min (>60); Estimated Creatinine Clearance 76.32 ml/min; Globulin 3.8 g/dL (2.2-4.2); Glucose 106 mg/dL (74-106); Lipase 47 U/L (13-75); Potassium 4.2 mmol/L (3.5-5.1); Protein, Total 7.5 g/dL (6.4-8.2); Sodium Level 137 mmol/L (136-145)
[2023-05-13 14:54] LABS: Bacteria 0 SEEN /hpf (None Seen); Mucous, Urine 0 SEEN /hpf (<or=2+); Red Blood Cells-Urine 0 SEEN /hpf (0-5); Squamous Epithelial Cells - UA 0 SEEN /hpf (5-10); White Blood Cells 0 SEEN /hpf (0-5)
[2023-05-13 14:58] LABS: Color, Urine Straw (Yellow); Glucose, Dipstick Normal (Normal); Ketone-Dipstick Negative (Negative); Leukocyte Esterase-Dipstick Negative /ul (Negative); Nitrite-Dipstick Negative (Negative); Occult Blood-Urine Negative /ul (Negative); Protein-Dipstick Negative (Negative); Urine Bilirubin Dipstick Negative (Negative); Urine Clarity Sl. Cloudy (Clear); Urine Urobilinogen Normal (Normal)
[2023-05-13 16:00] VITALS: BP 115/72; PULSE 60; RESP 16; O2SAT 99
[2023-05-13 16:30] VITALS: BP 118/70; PULSE 63; RESP 18; TEMP 36.8; O2SAT 99
== END 2023-05-13 16:31 | disposition home or self-care (01) ==
PROVIDERS: Physician Assistant; Emergency Provider Emergency Medicine; PCP Internal Medicine; Visit Provider Emergency Medicine
DX: R10.9 Unspecified abdominal pain (principal); I10 Essential (primary) hypertension; Z87.891 Personal history of nicotine dependence; R19.7 Diarrhea, unspecified; E78.00 Pure hypercholesterolemia, unspecified; Z90.49 Acquired absence of other specified parts of digestive tract; Z79.899 Other long term (current) drug therapy
CPT/HCPCS: 71046; 74177; 80053; 81001; 83690; 85025; 96361; 96374; 99283; J7030; Q9967; A4216

== ENCOUNTER 2023-06-04 21:34 | Emergency (ER) | payer OTHER, SELFPAY ==
[2023-06-04 21:34] VITALS: BP 155/118; PULSE 76; RESP 16; TEMP 36.2; O2SAT 97; BMI 35.6
--- NOTE | 2023-06-04 21:40 | RAD_ITS ---
STUDY: X-RAY - LEFT SHOULDER REASON FOR EXAM: Female, 63 years old. injury/pain TECHNIQUE: 4 view(s) of the shoulder. COMPARISON: None. FINDINGS: Normal glenohumeral articulation. There is degenerative arthrosis of the acromioclavicular joint without inferior osseous spur formation. Normal acromion. Normal humeral head and visualized proximal humerus. There is periarticular soft tissue calcification consistent with a calcific tendinitis. Normal visualized pulmonary apex. RAD/Shoulder min 2 Views IMPRESSION: 1. No acute fracture or dislocation. 2. Mild acromioclavicular joint arthrosis. 3. Hydroxyapatite deposition disease (calcific tendinitis) ( Electronically Signed: Miguel Hansen MD at 22:05 EST ,
--- NOTE | 2023-06-04 22:02 | EKG12_ITS ---
Test Reason : ARM/SHOULDER PAIN Blood Pressure : / mmHG Vent. Rate : 073 BPM Atrial Rate : 073 BPM P-R Int : 144 ms QRS Dur : 080 ms QT Int : 390 ms P-R-T Axes : 037 010 032 degrees QTc Int : 429 ms Normal sinus rhythm Normal ECG Confirmed by ROBERTO CARLOS GILL, ISAÍAS ([id number]), assistant film editor MARGO BOLTON ([id number]) on 06/05/2023 1:13:20 PM Referred By: Rufino Toribio Confirmed By:ISAÍAS AZEVEDO MD
[2023-06-05] MEDS: Ketorolac 15 MG/ML Vial IV (00:16)
[2023-06-05 00:31] LABS: Absolute Lymphocyte Count 1.78 X10^3/uL (0.83-4.51); Basophil# 0.05 X10^3/uL; Basophil% 0.4 % (0-1); Eosinophil# 0.53 X10^3/uL; Eosinophils% 4.1 % (0-5); Hematocrit 42.2 % (37-47); Hemoglobin 13.9 g/dL (12.0-15.0); Lymphocyte # 1.78 X10^3/ul (0.83-4.51); Lymphocyte % 13.8 % (19-41); Mean Corp Hgb Conc 32.9 g/dL (32-36); Mean Corpuscular Hgb 29.8 pg (27.0-32.0); Mean Corpuscular Volume 90.4 fL (81-99); Mean Platelet Vol. 9.9 fl (6.2-12.0); Monocyte# 1.22 X10^3/uL; Monocyte% 9.5 % (0-10); NRBC Flagged by Analyzer 0 % (0-5); Neutrophil # 9.04 X10^3/uL (2.7-7.7); Neutrophil % 70.2 % (47-70); Platelet Count 423 K/mm3 (150-450); RBC Distribution Width SD 42.9 fl (35.1-43.9); Red Blood Count 4.67 M/mm3 (4.2-5.4); White Blood Count 12.9 K/mm3 (4.4-11.0)
[2023-06-05 00:33] LABS: Erythrocyte Sedimentation Rate 22 mm/hr (0-30)
[2023-06-05 00:44] LABS: Anion Gap 4 (5-15); BUN 16 mg/dL (7-18); BUN/Creat Ratio 27.5 RATIO (10-20); CRP 5.43 mg/L (0.0-3.0); Calcium,Total 9.9 mg/dL (8.5-10.1); Chloride 109 mmol/L (98-107); Creatinine, Serum 0.58 mg/dL (0.55-1.02); EST Glomerular Filtration Rate 112 mL/min (>60); Est Glom Filt Rate - Afr Amer 135 mL/min (>60); Estimated Creatinine Clearance 86.84 ml/min; Glucose 109 mg/dL (74-106); Potassium 4.1 mmol/L (3.5-5.1); Sodium Level 139 mmol/L (136-145)
--- NOTE | 2023-06-05 01:10 | EDS_ITS ---
HPI History of Present Illness Chief Complaint: Upper Extremity Injury Informant: patient Narrative Narrative: 2 days gradual onset pain diffusely throughout the left shoulder, no injury. No fevers, chills, or any systemic symptoms but she has had some swelling down into the left arm and hand today that she has not had before. None on the right or her legs. No history of DVT or PE and has no chest discomfort or pleuritic symptoms. No recent IV or hospitalization. She is left-hand dominant. She states the other day a dog made her misstep and catch herself with her right arm, she mistakenly told triage that it was the same arm that was hurting but it is not. She denies any history of problems in her left shoulder. Patient states she had COVID about 3 weeks ago and recovered from that. [facility] Medical History Abrasion of right heel Acute cystitis Acute sinusitis, unspecified Arthritis Asthma Back pain Back pain Borderline type 2 diabetes mellitus Colon cancer screening colon surgery-diverticulitis Fatty liver Flu vaccine need Health care maintenance High cholesterol History of cellulitis HX: benign breast biopsy Hypertension Meningioma Osteoporosis Preventative health care Recurrent sinus infections Right flank pain Shoulder pain Sinusitis SOB (shortness of breath) Vaccine counseling Vitamin D deficiency Home Medications garlic 1,000 mg capsule 1,000 mg PO .QID 11/09/18 [History Last Taken 05/13/23] cholecalciferol (vitamin D3) 1,250 mcg (50,000 unit) capsule 50,000 unit PO QWEEK #13 caps 08/26/22 [Rx Last Taken Unknown] levocetirizine 5 mg tablet (Xyzal) 5 mg PO QPM PRN allergy symptoms #30 tabs 08/26/22 [Rx Last Taken Unknown] polyethylene glycol 3350 17 gram/dose oral powder (Miralax) 17 g PO DAILY PRN constipation 3 months #850 grams 08/26/22 [Rx Last Taken Unknown] rosuvastatin 20 mg tablet (Crestor) 20 mg PO DAILY #90 tabs 08/26/22 [Rx Last Taken 05/13/23] methenamine hippurate 1 gram tablet (Hiprex) 1 g PO BID #180 tabs 02/23/23 [Rx Last Taken 05/13/23] albuterol sulfate 90 mcg/actuation aerosol inhaler 2 puff inhalation Q4H PRN shortness of breath or wheezing #17 grams 04/20/23 [Rx Last Taken Unknown] propranolol 10 mg tablet 10 mg PO BID #180 tabs 04/20/23 [Rx Last Taken 05/13/23] prednisone 20 mg tablet 20 mg PO BID #10 tabs 04/24/23 [Rx Last Taken 05/13/23] albuterol sulfate 2.5 mg/3 mL (0.083 %) solution for nebulization 2.5 mg (3 mL) inhalation Q6H #180 mL 05/04/23 [Rx Last Taken Unknown] fluticasone propionate 50 mcg/actuation nasal spray,suspension (Flonase Allergy Relief) 1 spray intranasal DAILY #16 grams 05/04/23 [Rx Last Taken 05/13/23] nebulizers (Airs Disposable Nebulizer misc) #1 ea 05/04/23 [Rx Last Taken Unknown] nirmatrelvir 300 mg (150 mg x2)-ritonavir 100 mg tablet,dose pack (Paxlovid) See Rx Instructions PO .COMPLEX #30 tabs 05/08/23 [Rx Last Taken 05/13/23] naproxen 500 mg tablet 500 mg PO BID PRN #12 tabs 06/05/23 [Rx Last Taken Unknown] Allergy/AdvReac Type Severity Reaction Status Date / Time cephalexin monohydrate Allergy Severe Anaphylaxis Verified 05/13/23 13:34 [From Keflex] norfloxacin Allergy Severe Rash Verified 05/13/23 13:34 shellfish derived Allergy Severe TONGUE Verified 05/13/23 13:34 [seafood - shellfish] SWELLING Latex, Natural Rubber Allergy Mild Itching Verified 05/13/23 13:34 doxycycline Allergy Swelling Verified 05/13/23 13:36 metoprolol AdvReac Intermediate Sneezing Verified 05/13/23 13:34 and nasal congestion isopropyl alcohol AdvReac Mild red Verified 05/13/23 13:34 Family History Uncle Colon cancer Grandmother Mouth cancer Uterine cancer Mother Hypertension Other Lung cancer Surgical History History of section History of tonsillectomy Hx of appendectomy Social History Smoking Status: Former smoker how long ago did patient quit smoking: quit 15 years alcohol intake: never substance use type: does not use caffeine: Yes Type: coffee Number of servings: 1 what type of physical activity do you participate in: none seatbelt use: always do you feel safe at home: Yes additional social history: Single ROS ROS ED Constitutional Constitutional ED: Denies chills or fever(s) Eyes Eyes: Denies blurry vision or diplopia ENT ENT ED: Denies rhinorrhea or sore throat Cardiovascular Cardiovascular: Denies chest pain or palpitations Respiratory/Chest Respiratory/Chest: Denies cough or dyspnea Musculoskeletal Musculoskeletal: Reports extremity pain and other Details: Swelling left hand/forearm ; Denies neck pain Integumentary Denies Abrasions, rash or wounds Neurologic Neurologic: Denies paresthesias or weakness EXAM Physical Exam Const Vital Signs: 06/04/23 21:34 Temperature 97.2 F L Temperature Source Temporal Pulse Rate 76 Respiratory Rate 16 Blood Pressure 155/118 H Blood Pressure Mean 130 Pulse Ox 97 Oxygen Delivery Method Room Air Positive well nourished and well developed General Appearance ED: well developed and NAD Neck full ROM and supple Chest Wall inspection of chest normal and palpation of chest normal Resp normal respiratory effort and clear to auscultation bilaterally Cardio regular rate, regular rhythm and no murmurs GI non-tender and non-distended Back/Spine normal ROM and normal to inspection Extremity Extremity Narrative: Limited range of motion of the left shoulder. She can internally and externally rotate some, and it does not bother her very much. She cannot flex her arm up or abduct at all due to significant pain. Diffusely tender. Normal-appearing without any erythema or swelling, and the area feels cold but the patient states prior to getting here she has been applying ice to it. Mild edema in the left hand nonpitting, there is no tenderness from the mid humerus area down, but up into the proximal upper arm she is tender diffusely and it is normal-appearing and feeling otherwise to me. 2+/4 radial pulse. Neuro oriented x3, no focal motor deficits and no sensory deficits noted Sensorium / Orientation: alert Psych mental status grossly normal and thought process normal Skin no wounds Rashes: no rashes MDM MDM MDM Narrative Medical decision making narrative: X-rays 3 views of the left shoulder negative/normal in my interpretation radiology in agreement. Concern here would be for potentially a blood clot although she has no reason to have one, shoulder infection although she has no reason to have 1, musculoskeletal shoulder etiology should not be causing swelling, and DVT should not be causing significant discomfort when trying to move her shoulder joint. Screening labs were obtained, she does have a leukocytosis, but her ESR is normal and her CRP is just barely out of range, arguing against acute infection but not necessarily ruling it out with regards to the ESR and CRP. Patient was amenable to arthrocentesis to evaluate further.. With regards to pain, she wanted something but wanted no narcotics that she was given IV Toradol, which did help some. Arthrocentesis was performed but no fluid was able to be aspirated. Discussed with orthopedics on- call Dr. Padilla. Recommendations are close outpatient follow-up and symptomatic care without antibiotics or steroids as a septic arthritis much less likely; patient is comfortable going home, we did offer admission to consider it but she was okay going home. I do not think she needs an emergent MRI or any other test right now, but the labs and her severe pain along with 2% bands made me consider septic arthritis. Patient will be given a sling, prescription for Naprosyn, she was offered something stronger but declines. Lab Data Attestation: I reviewed the patient's lab results. Labs: Laboratory Results - last 24 hr 06/05/23 00:15 WBC 12.9 H RBC 4.67 Hgb 13.9 Hct 42.2 MCV 90.4 MCH 29.8 MCHC 32.9 RDW Std Deviation 42.9 RDW Coeff of Paola 13.0 Plt Count 423 MPV 9.9 Immature Gran % (Auto) 2.000 H Neut % (Auto) 70.2 H Lymph % (Auto) 13.8 L Dolores % (Auto) 9.5 Eos % (Auto) 4.1 Baso % (Auto) 0.4 Absolute Neuts (auto) 9.0 H Absolute Lymphs (auto) 1.78 Nucleated RBC % 0 ESR 22 Sodium 139 Potassium 4.1 Chloride 109 H Carbon Dioxide 26.0 Anion Gap 4 L BUN 16 Creatinine 0.58 Estim Creat Clear Calc 86.84 Est GFR (MDRD) Af Amer 135 Est GFR (MDRD) Non-Af 112 BUN/Creatinine Ratio 27.5 H Glucose 109 H Calcium 9.9 C-React Prot Ext Range 5.43 H Radiography Diagnostic Testing: Clinical Impression(s) from Imaging Studies Shoulder X-Ray 06/04/23 21:40 IMPRESSION: 1. No acute fracture or dislocation. 2. Mild acromioclavicular joint arthrosis. 3. Hydroxyapatite deposition disease (calcific tendinitis) ( Electronically Signed: Miguel Hansen MD at 22:05 EST , Procedures Other Procedures Procedure(s): Arthrocentesis left shoulder: With isopropanol prep, and 0.5 cc plain 1% lidocaine instillation subcutaneously posterior subacromial approach, a 21-gauge needle was placed into the same area into the joint space, there is no fluid to be aspirated. Subsequently, patient was amenable to reintroduction of the 22-gauge needle with lidocaine, this was placed into the joint, and she to lerated this well, 2 cc. No complications. Discharge Plan Triage Chief Complaint: Upper Extremity Injury ED Provider: Rufino Toribio Dx/Rx/DC Orders Clinical Impression: Acute pain of left shoulder Instructions: ED Shoulder Pain, Uncertain Cause Prescriptions: New naproxen 500 mg tablet 500 mg PO BID PRN Qty: 12 0RF No Action garlic 1,000 mg capsule 1,000 mg PO .QID levocetirizine [Xyzal] 5 mg tablet 5 mg PO QPM PRN (Reason: allergy symptoms) Qty: 30 1RF rosuvastatin [Crestor] 20 mg tablet 20 mg PO DAILY Qty: 90 3RF polyethylene glycol 3350 [Miralax] 17 gram/dose powder 17 g PO DAILY PRN (Reason: constipation) 90 Days Qty: 850 3RF cholecalciferol (vitamin D3) 1,250 mcg (50,000 unit) capsule 50,000 unit PO QWEEK Qty: 13 3RF prednisone 20 mg tablet 20 mg PO BID Qty: 10 0RF albuterol sulfate 2.5 mg /3 mL (0.083 %) solution for nebulization 2.5 mg inhalation Q6H Qty: 180 0RF fluticasone propionate [Flonase Allergy Relief] 50 mcg/actuation spray,suspension 1 spray intranasal DAILY Qty: 16 0RF Rx Instructions: administer into each nostril (DME) nebulizers [Airs Disposable Nebulizer] [facility] [place] See Rx Instructions .Route Qty: 1 0RF Rx Instructions: As directed methenamine hippurate [Hiprex] 1 gram tablet 1 g PO BID Qty: 180 1RF albuterol sulfate 90 mcg/actuation HFA aerosol inhaler 2 puff inhalation Q4H PRN (Reason: shortness of breath or wheezing) Qty: 17 1RF Rx Instructions: INHALE 2 PUFFS BY MOUTH EVERY 4 HOURS NEEDED FOR SHORTNESS OF BREATH/WHEEZING propranolol 10 mg tablet 10 mg PO BID Qty: 180 1RF Paxlovid 300 mg (150 mg x 2)-100 mg tablets,dose pack See Rx Instructions PO .COMPLEX Qty: 30 0RF Rx Instructions: take TWO 150 mg tablets of nirmatrelvir with ONE 100 mg tablet of ritonavir twice daily for 5 days PO Primary Care Provider: Camille Chappell Referrals: Camille Chappell MD [Primary Care Provider] - Minh Padilla MD [Med Staff - Active Staff] - As soon as possible Disposition Disposition: Home, Self Care
== END 2023-06-05 03:09 | disposition home or self-care (01) ==
PROVIDERS: Emergency Provider Emergency Medicine; PCP Internal Medicine; Referring Provider Emergency Medicine; Visit Provider Emergency Medicine
DX: M25.512 Pain in left shoulder (principal); Z87.891 Personal history of nicotine dependence; I10 Essential (primary) hypertension; E55.9 Vitamin D deficiency, unspecified; E78.00 Pure hypercholesterolemia, unspecified; Z79.899 Other long term (current) drug therapy; Z90.49 Acquired absence of other specified parts of digestive tract
CPT/HCPCS: 20610; 73030; 80048; 85025; 85652; 86140; 93005; 96374; 99284; A4216

== ENCOUNTER 2023-06-08 19:17 | Emergency (ER) | payer OTHER, SELFPAY ==
[2023-06-08 19:19] VITALS: BP 132/54; PULSE 83; RESP 18; TEMP 36.7; O2SAT 99; BMI 35.3
--- NOTE | 2023-06-08 21:40 | EDS_ITS ---
HPI History of Present Illness Chief Complaint: Wound Check Informant: patient Narrative Narrative: Patient presents with an area of redness and tenderness to the left arm. She states last Monday she tried to poke an area in the posterior left shoulder that she thought had a fluid collection. She has been having trouble with her left shoulder and actually had an MRI today ordered by Dr. Padilla. She presents to the ER tonight because she has a round red area on the mid upper arm that is warm and slightly tender to touch. She outlined the area this morning and it is slightly increased in size. No fever has been noted. [facility] Medical History Abrasion of right heel Acute cystitis Acute sinusitis, unspecified Arthritis Asthma Back pain Back pain Borderline type 2 diabetes mellitus Calcific tendinitis of left shoulder Colon cancer screening colon surgery-diverticulitis Fatty liver Flu vaccine need Health care maintenance High cholesterol History of cellulitis HX: benign breast biopsy Hypertension Meningioma Osteoporosis Preventative health care Recurrent sinus infections Right flank pain Shoulder pain Sinusitis SOB (shortness of breath) Vaccine counseling Vitamin D deficiency Home Medications garlic 1,000 mg capsule 1,000 mg PO .QID 11/09/18 [History Last Taken 05/13/23] cholecalciferol (vitamin D3) 1,250 mcg (50,000 unit) capsule 50,000 unit PO QWEEK #13 caps 08/26/22 [Rx Last Taken Unknown] levocetirizine 5 mg tablet (Xyzal) 5 mg PO QPM PRN allergy symptoms #30 tabs 08/26/22 [Rx Last Taken Unknown] polyethylene glycol 3350 17 gram/dose oral powder (Miralax) 17 g PO DAILY PRN constipation 3 months #850 grams 08/26/22 [Rx Last Taken Unknown] rosuvastatin 20 mg tablet (Crestor) 20 mg PO DAILY #90 tabs 08/26/22 [Rx Last Taken 05/13/23] methenamine hippurate 1 gram tablet (Hiprex) 1 g PO BID #180 tabs 02/23/23 [Rx Last Taken 05/13/23] albuterol sulfate 90 mcg/actuation aerosol inhaler 2 puff inhalation Q4H PRN shortness of breath or wheezing #17 grams 04/20/23 [Rx Last Taken Unknown] propranolol 10 mg tablet 10 mg PO BID #180 tabs 04/20/23 [Rx Last Taken 05/13/23] prednisone 20 mg tablet 20 mg PO BID #10 tabs 04/24/23 [Rx Last Taken 05/13/23] albuterol sulfate 2.5 mg/3 mL (0.083 %) solution for nebulization 2.5 mg (3 mL) inhalation Q6H #180 mL 05/04/23 [Rx Last Taken Unknown] fluticasone propionate 50 mcg/actuation nasal spray,suspension (Flonase Allergy Relief) 1 spray intranasal DAILY #16 grams 05/04/23 [Rx Last Taken 05/13/23] nebulizers (Airs Disposable Nebulizer misc) #1 ea 05/04/23 [Rx Last Taken Unknown] nirmatrelvir 300 mg (150 mg x2)-ritonavir 100 mg tablet,dose pack (Paxlovid) See Rx Instructions PO .COMPLEX #30 tabs 05/08/23 [Rx Last Taken 05/13/23] naproxen 500 mg tablet 500 mg PO BID PRN #12 tabs 06/05/23 [Rx Last Taken Unknown] naproxen 500 mg tablet 500 mg PO BID PRN pain 10 days #20 tabs 06/06/23 [Rx Last Taken Unknown] prednisone 5 mg tablets in a dose pack See Rx Instructions PO PER PKG DIR shoulder pain #21 tabs 06/06/23 [Rx Last Taken Unknown] sulfamethoxazole 800 mg-trimethoprim 160 mg tablet (Bactrim DS) 1 tab PO BID #14 tabs 06/08/23 [Rx Last Taken Unknown] Allergy/AdvReac Type Severity Reaction Status Date / Time cephalexin monohydrate Allergy Severe Anaphylaxis Verified 06/08/23 19:21 [From Keflex] norfloxacin Allergy Severe Rash Verified 06/08/23 19:21 shellfish derived Allergy Severe TONGUE Verified 06/08/23 19:21 [seafood - shellfish] SWELLING Latex, Natural Rubber Allergy Mild Itching Verified 06/08/23 19:21 doxycycline Allergy Swelling Verified 06/08/23 19:21 metoprolol AdvReac Intermediate Sneezing Verified 06/08/23 19:21 and nasal congestion isopropyl alcohol AdvReac Mild red Verified 06/08/23 19:21 Family History Uncle Colon cancer Grandmother Mouth cancer Uterine cancer Mother Hypertension Other Lung cancer Surgical History History of section History of tonsillectomy Hx of appendectomy Social History Smoking Status: Former smoker how long ago did patient quit smoking: quit 15 years alcohol intake: never substance use type: does not use caffeine: Yes Type: coffee Number of servings: 1 what type of physical activity do you participate in: none seatbelt use: always do you feel safe at home: Yes additional social history: Single ROS ROS ED Constitutional Constitutional ED: Denies chills or fever(s) Eyes Eyes: Denies discharge from eye(s) ENT ENT ED: Denies discharge from eye(s), rhinorrhea or sore throat Cardiovascular Cardiovascular: Denies chest pain Respiratory/Chest Respiratory/Chest: Denies cough Gastrointestinal Gastrointestinal: Denies abdominal pain Musculoskeletal Musculoskeletal: Reports extremity pain; Denies back pain Integumentary Reports rash; Denies Abrasions Neurologic Neurologic: Denies headache(s) or weakness Psychiatric Psychiatric: Denies anxiety or depression Allergic/Immunologic Allergic/Immunologic ED: Denies lip swelling or urticaria EXAM Physical Exam Const Vital Signs: 06/08/23 19:19 Temperature 98.0 F Temperature Source Temporal Pulse Rate 83 Respiratory Rate 18 Blood Pressure 132/54 H Blood Pressure Mean 80 Pulse Ox 99 Oxygen Delivery Method Room Air Positive well nourished and well developed General Appearance ED: well developed HEENT Reports moist mucous membranes Eyes EOMs intact bilaterally Chest Wall inspection of chest normal Resp normal respiratory effort Cardio regular rate and regular rhythm Extremity Extremity Narrative: 9 cm diameter round erythematous area to the mid left upper arm. No open wounds. Area is slightly indurated. Neuro oriented x3 MDM MDM MDM Narrative Medical decision making narrative: Bedside ultrasound was used to evaluate the area. I do not see any fluid collections. She does have some skin thickening consistent with a cellulitis. Given the patient's allergy should be treated with a course of Bactrim, first dose given here. Return instructions given. Discharge Plan Triage Chief Complaint: Wound Check ED Provider: Darcy Kaur Dx/Rx/DC Orders Clinical Impression: Cellulitis Instructions: ED Cellulitis Prescriptions: New sulfamethoxazole-trimethoprim [Bactrim DS] 800-160 mg tablet 1 tab PO BID Qty: 14 0RF No Action garlic 1,000 mg capsule 1,000 mg PO .QID levocetirizine [Xyzal] 5 mg tablet 5 mg PO QPM PRN (Reason: allergy symptoms) Qty: 30 1RF rosuvastatin [Crestor] 20 mg tablet 20 mg PO DAILY Qty: 90 3RF polyethylene glycol 3350 [Miralax] 17 gram/dose powder 17 g PO DAILY PRN (Reason: constipation) 90 Days Qty: 850 3RF cholecalciferol (vitamin D3) 1,250 mcg (50,000 unit) capsule 50,000 unit PO QWEEK Qty: 13 3RF prednisone 20 mg tablet 20 mg PO BID Qty: 10 0RF albuterol sulfate 2.5 mg /3 mL (0.083 %) solution for nebulization 2.5 mg inhalation Q6H Qty: 180 0RF fluticasone propionate [Flonase Allergy Relief] 50 mcg/actuation spray,suspension 1 spray intranasal DAILY Qty: 16 0RF Rx Instructions: administer into each nostril (DME) nebulizers [Airs Disposable Nebulizer] Misc See Rx Instructions .Route Qty: 1 0RF Rx Instructions: As directed prednisone 5 mg tablets,dose pack See Rx Instructions PO PER PKG DIR Qty: 21 0RF Rx Instructions: PO PER PKG DIR naproxen 500 mg tablet 500 mg PO BID PRN (Reason: pain) 10 Days Qty: 20 0RF naproxen 500 mg tablet 500 mg PO BID PRN Qty: 12 0RF methenamine hippurate [Hiprex] 1 gram tablet 1 g PO BID Qty: 180 1RF albuterol sulfate 90 mcg/actuation HFA aerosol inhaler 2 puff inhalation Q4H PRN (Reason: shortness of breath or wheezing) Qty: 17 1RF Rx Instructions: INHALE 2 PUFFS BY MOUTH EVERY 4 HOURS NEEDED FOR SHORTNESS OF BREATH/WHEEZING propranolol 10 mg tablet 10 mg PO BID Qty: 180 1RF Paxlovid 300 mg (150 mg x 2)-100 mg tablets,dose pack See Rx Instructions PO .COMPLEX Qty: 30 0RF Rx Instructions: take TWO 150 mg tablets of nirmatrelvir with ONE 100 mg tablet of ritonavir twice daily for 5 days PO Primary Care Provider: Camille Chappell Referrals: Camille Chappell MD [Primary Care Provider] - 1 Week Disposition Disposition: Home, Self Care
[2023-06-08] MEDS: Smz/Tmp Ds Tablet 1 TABLET PO (21:58)
== END 2023-06-08 22:00 | disposition home or self-care (01) ==
LOC: ED 21:55
PROVIDERS: Emergency Provider Emergency Medicine; PCP Internal Medicine; Visit Provider Emergency Medicine
DX: L03.114 Cellulitis of left upper limb (principal); I10 Essential (primary) hypertension; Z87.891 Personal history of nicotine dependence; E78.00 Pure hypercholesterolemia, unspecified; J45.909 Unspecified asthma, uncomplicated
CPT/HCPCS: 99282

== ENCOUNTER → 2023-06-08 | Outpatient (CLI) | payer OTHER, SELFPAY ==
--- NOTE | 2023-06-08 17:15 | MRI_ITS ---
EXAM: MR LEFT UPPER EXTREMITY WITHOUT INTRAVENOUS CONTRAST, SHOULDER CLINICAL INDICATION: pain, calcific tendonitis, rule out cuff tear TECHNIQUE: Multiplanar and multisequence MR images of the left shoulder without intravenous contrast. COMPARISON: June 04, 2023 FINDINGS: TENDONS: SUPRASPINATUS: Mild to moderate supraspinatus tendinosis without tendon tear. INFRASPINATUS: 7 mm focus of calcium hydroxyapatite crystal deposition disease along the greater tubercle attachment of the infraspinatus tendon. Mild to moderate infraspinatus tendinosis without tendon tear. SUBSCAPULARIS: Unremarkable. Intact. TERES MINOR: Unremarkable. Intact. BICEPS BRACHII, LONG HEAD: Unremarkable. The extra-articular biceps tendon is in the bicipital groove. The intra-articular biceps tendon is normal. LIGAMENTS: GLENOHUMERAL: Unremarkable. Intact. MUSCLES: Unremarkable. No rotator cuff muscle atrophy. FLUID: Moderate amount of fluid in the subacromial subdeltoid bursa can be seen with bursitis in the appropriate clinical setting. No significant glenohumeral joint effusion. CARTILAGE: Unremarkable. Articular cartilage intact. GLENOID LABRUM: Unremarkable. Intact, limited evaluation on non-arthrographic exam. BONES/JOINTS: Mild to moderate hypertrophic degenerative changes of the acromioclavicular joint with mild mass effect on the underlying soft tissues. Type I acromion with flat undersurface. No subacromial enthesophyte or os acromiale. Abnormal morphology at the anterior-inferior labrum may represent labral degeneration and/or chronic degenerative tearing. No fracture. No abnormal bone marrow signal. OTHER SOFT TISSUES: Unremarkable. No rotator interval edema. MRI/Upper Ext Joint Only(Routine) IMPRESSION: 1. 7 mm focus of calcium hydroxyapatite crystal deposition disease along the greater tubercle attachment of the infraspinatus tendon. 2. Moderate amount of fluid in the subacromial subdeltoid bursa can be seen with bursitis in the appropriate clinical setting. 3. No rotator cuff tear. 4. Abnormal morphology at the anterior-inferior labrum may represent labral degeneration and/or chronic degenerative tearing. Electronically Signed: Johan Hoffman MD at 20:29 EST ,
== END | disposition home or self-care (01) ==
LOC: MRI 17:12
PROVIDERS: PCP Internal Medicine; Referring Provider Orthopaedic Surgery Sports Medicine; Visit Provider Orthopaedic Surgery Sports Medicine
DX: M75.32 Calcific tendinitis of left shoulder (principal); M25.512 Pain in left shoulder
CPT/HCPCS: 73221

== ENCOUNTER → 2023-06-17 | Outpatient (CLI) | payer OTHER, SELFPAY ==
[2023-06-17 09:17] LABS: Cholesterol 216 mg/dL (200); High Density Lipoprotein 64 mg/dL; Triglycerides 109 mg/dL; Very Low Density Lipoprotein 22 mg/dL (5-40)
== END | disposition home or self-care (01) ==
LOC: LAB 08:18
PROVIDERS: PCP Internal Medicine; Visit Provider Internal Medicine
DX: Z00.00 Encounter for general adult medical examination without abnormal findings (principal)
CPT/HCPCS: 36415; 80061

== ENCOUNTER → 2023-08-16 | Outpatient (CLI) | payer OTHER, SELFPAY ==
[2023-08-21 13:07] LABS: HPV APTIMA, High Risk Negative (Negative)
== END | disposition home or self-care (01) ==
LOC: LABSPEC 15:22
PROVIDERS: Referring Provider Nurse Practitioner Women's Health; Visit Provider Nurse Practitioner Women's Health
DX: Z12.4 Encounter for screening for malignant neoplasm of cervix (principal)
CPT/HCPCS: 87624; 88175; G0145

== ENCOUNTER → 2023-11-14 | Outpatient (CLI) | payer OTHER, SELFPAY ==
--- NOTE | 2023-11-14 07:56 | BI_ITS ---
MAMMOGRAPHY - BILATERAL SCREENING REASON FOR EXAM: Female, 63 years old. Routine annual screening examination. PERTINENT HISTORY: Non-contributory. Remote bilateral excisional breast biopsies. TECHNIQUE: Digital bilateral breast bo (3D mammographic acquisition) in the CC and MLO projections. 2-D mediolateral oblique (MLO) and craniocaudad (CC) views of both breasts were obtained. CAD: Full Field Digital Mammography with Computer Added Detection was performed. COMPARISON: Comparison is made with prior study November 07, 2022 and November 04, 2021. FINDINGS: Breast Composition: There are scattered areas of fibroglandular density. There are no dominant masses or suspicious calcifications. Stable small benign-appearing bilateral axillary lymph nodes. A tissue clip marker is seen in the deep central medial aspect of the right breast. No other significant abnormalities are identified. There has been no significant change since the prior study. BI/SCRN MAMM (CAD)W/BO BILAT IMPRESSION: Stable bilateral screening mammogram. Yearly follow-up mammogram recommended. (A) ASSESSMENT CATEGORY: BIRADS Category 2: Benign. A letter regarding these results will be sent to the patient by the facility within 30 days. Approximately 10% of breast cancers are not detected by mammography. A normal mammogram should not delay biopsy of a clinically suspicious abnormality. [id number] Electronically Signed: Milad Brizuela MD at 10:24 EDT ,
== END | disposition home or self-care (01) ==
LOC: OPBI 07:55
PROVIDERS: PCP Internal Medicine; Referring Provider Registered Nurse; Visit Provider Registered Nurse
DX: Z12.31 Encounter for screening mammogram for malignant neoplasm of breast (principal)
CPT/HCPCS: 77063; 77067

== ENCOUNTER → 2024-01-10 | Outpatient (CLI) | payer OTHER, SELFPAY ==
--- NOTE | 2024-01-10 09:08 | BD_ITS ---
STUDY: DUAL ENERGY X-RAY ABSORPTIOMETRY / DXA REASON FOR EXAM: Female, 64 years old. Osteopenia TECHNIQUE: Bone Mineral Density (BMD) measurements of lumbar spine and bilateral hips were obtained. COMPARISON: Comparison is made with prior study dated November 04, 2021. FINDINGS: Lumbar Spine (L1-L4): g/cm2 (0.808) / T-score (-2.2) / Z-score (-0.6) Findings are suggestive of osteopenia with a high fracture risk. Left Femur Total: g/cm2 (0.892) / T-score (-0.4) / Z-score (0.7) Left Femoral Neck: g/cm2 (0.698) / T-score (-1.4) / Z-score (0.1) Right Femur Total: g/cm2 (0.832) / T-score (-0.9) / Z-score (0.2) Right Femoral Neck: g/cm2 (0.680) / T-score (-1.5) / Z-score (-0.1) The T-Scores on the most recent prior examination were: Lumbar Spine (L1-L4): There has been improvement of bone density since the previous examination. Left Femur Total: which represents an improvement of 3.7%. Right Femur Total: which represents an improvement of 0.4%. BD/Dexa Bone Density Study IMPRESSION: The patient is considered osteopenic as outlined below according to World [employer] Organization (WHO) criteria with a high fracture risk. There has been improvement of bone density since the previous examination. Reference Information: The T-score is the number of standard deviations above or below the standard which is normal for young adults at their peak bone mineral density. The World Health Organization (WHO) interprets the T-scores as follows: Above -1 Normal bone density Between -1 and -2.5 Osteopenia Equal to / or below -2.5 Osteoporosis As a practical clinical guideline, osteopenia may be graded as follows: Mild -1 through -1.5 Moderate -1.6 through -2.0 Severe -2.1 through -2.4 The Z-score is the number of standard deviations above or below age-matched controls. A Z-score of less than -1.5 would be considered abnormal. References: 1. NIH Osteoporosis and Related Bone Diseases www osteo.org 2. International Society for Clinical Densitometry www iscd.org 3. National Osteoporosis Foundation www nof.org Electronically Signed: Milad Brizuela MD at 9:21 EDT ,
== END | disposition home or self-care (01) ==
LOC: OPBD 08:57
PROVIDERS: PCP Internal Medicine; Referring Provider Internal Medicine; Visit Provider Internal Medicine
DX: M85.88 Other specified disorders of bone density and structure, other site (principal)
CPT/HCPCS: 77080

== ENCOUNTER → 2024-02-12 | Outpatient (CLI) | payer OTHER, SELFPAY ==
[2024-02-12 15:46] LABS: Anion Gap 5 (5-15); BUN 15 mg/dL (7-18); BUN/Creat Ratio 21.5 RATIO (10-20); Calcium,Total 10.2 mg/dL (8.5-10.1); Chloride 107 mmol/L (98-107); EST Glomerular Filtration Rate 90 mL/min (>60); Est Glom Filt Rate - Afr Amer 109 mL/min (>60); Glucose 106 mg/dL (74-106); Potassium 4.3 mmol/L (3.5-5.1); Sodium Level 141 mmol/L (136-145)
== END | disposition home or self-care (01) ==
LOC: BIMLAB 14:27
PROVIDERS: PCP Internal Medicine; Referring Provider Internal Medicine; Visit Provider Internal Medicine
DX: I10 Essential (primary) hypertension (principal)
CPT/HCPCS: 36415; 80048

== ENCOUNTER → 2024-02-17 | Outpatient (CLI) | payer OTHER, SELFPAY ==
[2024-02-20 07:37] LABS: PTHIN 82.4 pg/mL (18.4-80.1)
[2024-02-20 07:41] LABS: Vitamin D,25 Hydroxy 67.6 ng/mL
== END | disposition home or self-care (01) ==
LOC: LAB 08:05
PROVIDERS: PCP Internal Medicine; Referring Provider Internal Medicine; Visit Provider Internal Medicine
DX: E83.52 Hypercalcemia (principal)
CPT/HCPCS: 36415; 82306; 83970

== ENCOUNTER → 2024-05-03 | Outpatient (CLI) | payer OTHER, SELFPAY ==
--- NOTE | 2024-05-03 09:40 | RAD_ITS ---
INDICATION: Cough EXAMINATION/TECHNIQUE: X-RAY - XR Chest 2 Views COMPARISON: Prior study dated: 05/13/2023 FINDINGS: LINES/DEVICES: None. LUNGS: No consolidation. No pneumothorax. MEDIASTINUM: Unremarkable. CARDIAC SILHOUETTE: Not enlarged. BONES AND SOFT TISSUES: No acute abnormalities. Degenerative changes dorsal spine. RAD/Chest PA and Lateral IMPRESSION: No evidence of active intrathoracic disease. Electronically Signed: Sandra Hastings MD at 0:34 EST ,
== END | disposition home or self-care (01) ==
LOC: MTRAD 09:38
PROVIDERS: PCP Internal Medicine; Referring Provider Internal Medicine; Visit Provider Internal Medicine
DX: R05.9 Cough, unspecified (principal); J45.909 Unspecified asthma, uncomplicated
CPT/HCPCS: 71046

== ENCOUNTER → 2024-06-07 | Outpatient (CLI) | payer OTHER, SELFPAY ==
--- NOTE | 2024-06-07 10:05 | RAD_ITS ---
EXAM: XR CHEST, 2 VIEWS CLINICAL INDICATION: cough TECHNIQUE: Frontal and lateral views of the chest. COMPARISON: XR Chest dated 05/03/2024 FINDINGS: LUNGS AND PLEURAL SPACES: Normal. No consolidation or edema. No pneumothorax. No effusion. HEART: Normal heart size. MEDIASTINUM: No mediastinal or hilar mass. BONES/JOINTS: No acute abnormality. RAD/Chest PA and Lateral IMPRESSION: No acute cardiopulmonary abnormality. No interval change. Electronically Signed: Drew Mock MD at 11:21 EST ,
== END | disposition home or self-care (01) ==
LOC: MTRAD 10:05
PROVIDERS: PCP Internal Medicine; Referring Provider Physician Assistant Surgical; Visit Provider Physician Assistant Surgical
DX: J20.9 Acute bronchitis, unspecified (principal)
CPT/HCPCS: 71046

== ENCOUNTER → 2024-09-06 | Outpatient (CLI) | payer OTHER, SELFPAY ==
[2024-09-06 17:00] LABS: PTHIN 44 pg/mL (11-61)
[2024-09-06 17:01] LABS: Anion Gap 13 (5-15); BUN 16 mg/dL (4-19); BUN/Creat Ratio 25.4 RATIO (10-20); Calcium,Total 9.9 mg/dL (7.6-11.0); Carbon Dioxide 23.4 mmol/L (21.0-32.0); Chloride 105 mmol/L (98-108); Creatinine, Serum 0.62 mg/dL (0.70-1.20); EST Glomerular Filtration Rate 100 (>60); Glucose 114 mg/dL (70-99); Potassium 3.8 mmol/L (3.3-5.1); Sodium Level 142 mmol/L (133-145)
[2024-09-06 17:08] LABS: Rheumatoid Factor < 10.0 IU/mL (<15); Vitamin D,25 Hydroxy 50.4 ng/mL (30-100)
[2024-09-09 14:08] LABS: CCP IgG Antibodies 6 units (0-19)
== END | disposition home or self-care (01) ==
LOC: BIMLAB 15:00
PROVIDERS: PCP Internal Medicine; Visit Provider Internal Medicine
DX: E83.52 Hypercalcemia (principal); M19.90 Unspecified osteoarthritis, unspecified site; R73.09 Other abnormal glucose
CPT/HCPCS: 36415; 80048; 82306; 83036; 83970; 86200; 86431

== ENCOUNTER → 2024-10-03 | Outpatient (CLI) | payer OTHER, SELFPAY ==
--- NOTE | 2024-10-03 14:16 | US_ITS ---
PROCEDURE: THYROID 10/03/2024 REASON FOR EXAM: THYROID NODULE TECHNIQUE: Thyroid ultrasound COMPARISON: None. FINDINGS: Right lobe measures 4.2 x 1.3 x 1.1cm. Essentially homogeneous background echotexture. No abnormal vascularity. Nodules as below: *Midgland, 9 x 7 x 8 mm, solid, isoechoic, ill-defined margins, TI-RADS 3. Left lobe measures 4.0 x 1.6 x 1.2 cm. Essentially homogeneous background echotexture. No abnormal vascularity. Nodules as below: *Midgland, 14 x 11 x 8 mm, mixed cystic and solid, hypoechoic solid components, TI-RADS 3. Upper pole, 5 x 3 x 2 mm, mostly cystic, not suspicious. Isthmus measures 3 mm in thickness. US/Thyroid IMPRESSION: 1. Assessment is TI-RADS 3. No nodules currently meet criteria for FNA or follo w-up per the below. 2. Low normal size gland with essentially unremarkable background echotexture. No abnormal vascularity. Management recommendations for TI-RADS 3 findings: FNA if = 2.5 cm; Follow if = 1.5 cm at 1, 3, and 5 years. Recommendations per ACR Thyroid Imaging, Reporting and Data System (TI-RADS): Monty waller Paper of the ACR TI-RADS Committee, 2017 ([email or web address]) Reading Location: [id number]
== END | disposition home or self-care (01) ==
LOC: US 14:13
PROVIDERS: PCP Internal Medicine; Referring Provider Internal Medicine; Visit Provider Internal Medicine
DX: E04.1 Nontoxic single thyroid nodule (principal)
CPT/HCPCS: 76536

== ENCOUNTER → 2024-12-02 | Outpatient (CLI) | payer OTHER, SELFPAY ==
--- NOTE | 2024-12-02 10:20 | BI_ITS ---
EXAM: SCRN MAMM (CAD)W/BO BILAT DATE: 12/02/2024 CLINICAL HISTORY: F, Age 64 y/o , SCREENING No family history. Prior bilateral excisional breast biopsies. BREAST CANCER RISK ASSESSMENT: Not assessed. TECHNIQUE: Bilateral screening digital breast tomosynthesis with 2D and 3D images. Computer aided detection. COMPARISON: Prior exam(s) dated November 14, 2023.. FINDINGS: TISSUE DENSITY: The breast tissue is composed of scattered areas of fibroglandular density. Bilateral Breast Mammographic Findings: No significant masses, calcifications or other abnormalities are identified. No suspicious masses, areas of developing architectural distortion, or suspicious calcifications. There has been no significant interval change. BI/SCRN MAMM (CAD)W/BO BILAT IMPRESSION: OVERALL FINAL ASSESSMENT: BIRADS 1 NEGATIVE RECOMMENDATION: Routine annual follow-up in 1 Year A letter with findings and recommendations will be mailed to the patient. Reading Location: [place] [id number]
== END | disposition home or self-care (01) ==
LOC: OPBI 10:19
PROVIDERS: PCP Internal Medicine; Referring Provider Nurse Practitioner Women's Health; Visit Provider Nurse Practitioner Women's Health
DX: Z12.31 Encounter for screening mammogram for malignant neoplasm of breast (principal)
CPT/HCPCS: 77063; 77067

== ENCOUNTER 2025-01-13 08:47 | Day surgery (SDC) | payer OTHER, SELFPAY ==
--- NOTE | 2025-01-09 13:42 | PAT.ANE_ITS ---
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 When Was Last Pacemaker Check QUESTION #4 FULL TEXT: You/Your Family Experience fever (hyperthermia) with Anesthesia Last Oral Intake Last Oral intake: Last Oral Intake NPO since Meds taken in AM with sips of water? 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 - pneumatic tube operator: PONV - pneumatic tube operator Female Yes 01/09/25 10:59 HX of Motion Sickness No 01/09/25 10:59 HX of N/V After Surgery No 01/09/25 10:59 Non-Smoker Yes 01/09/25 10:59 Duration of Surgery greater No 01/09/25 10:59 than 60 minutes Number of Risk Factors 2 01/09/25 10:59 PONV Score Moderate Risk 01/09/25 10:59 Height & Weight Height & Weight: Anesthesia: Height & Weight Height 5 ft 4 in 01/02/25 10:43 Respiratory Assessment Respiratory Assessment - pneumatic tube operator: Respiratory Tract Infection Hx - pneumatic tube operator Hx Respiratory Tract Infection No 01/09/25 10:59 STOP Sleep Apnea STOP Sleep Apnea - pneumatic tube operator: STOP Sleep Apnea - pneumatic tube operator Hx Hypertension Yes: PER PT, CONTROLLED ON 01/09/25 10:59 MEDS Hx Sleep Apnea No 01/09/25 10:59 CPAP BIPAP Do you snore loudly (louder No 01/09/25 10:59 than talking or can be heard Do you often feel tired/ No 01/09/25 10:59 fatigued/ sleepy during daytime? Has anyone observed you stop No 01/09/25 10:59 breathing during sleep? STOP Results Negative 01/09/25 10:59 QUESTION #5 FULL TEXT : Do you snore loudly (louder than talking or can be heard through closed doors)? 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 Specify any problems Hx of Preganancy in last 3 No 01/09/25 10:59 Months Nurse Filling Out Transfusion FLORIN 01/09/25 10:59 & Questions: Date: 01/09/25 01/09/25 10:59 Time: 11:02 01/09/25 10:59 Patient unable to answer at this time (ie. confused, unrespo /Reproduction History /Reproductive History - pneumatic tube operator: /Reproductive Hx- pneumatic tube operator Hx Now No 01/09/25 10:59 Gestational Age (in weeks): EDC: Hx Hx Para Hx Section SAB No 01/09/25 10:59 [facility] Medical History (Updated 01/09/25 @ 11:11 by Ophelia Pressley) Wears dentures History of hepatitis History of diverticulitis Former smoker History of edema History of Holter monitoring History of echocardiogram Cardiology follow-up encounter Hypersomnolence GI bleed Thyroid nodule Screening for thyroid disorder Sinusitis Immunity status testing Acute bronchitis, unspecified Acute maxillary sinusitis, unspecified Cough Hypercalcemia Allergies Bilateral lower extremity edema Excessive cerumen in right ear canal Migraine Change in skin mole Calcific tendinitis of left shoulder Recurrent sinus infections History of cellulitis Right flank pain Flu vaccine need Borderline type 2 diabetes mellitus Arthritis Fatty liver High cholesterol Hypertension Meningioma Abrasion of right heel Vitamin D deficiency Osteoporosis Shoulder pain SOB (shortness of breath) Asthma Back pain HX: benign breast biopsy colon surgery-diverticulitis Home Medications ?Medication ?Instructions ?Recorded ?Last Taken ?Type garlic 1,000 mg capsule 1,000 mg PO DAILY 11/09/18 1 1/25/23 History nebulizers (Airs Disposable #1 ea 05/04/23 Unknown Rx Nebulizer misc) cyclobenzaprine 10 mg tablet 5 - 10 mg (0.5 - 1 x 10 m g) PO TID 06/14/23 Unknown Rx PRN muscle spasm #90 tabs nebulizer and compressor #1 ea 08/01/23 Unknown Rx nebulizers #1 ea 08/01/23 Unknown Rx polyethylene glycol 3350 17 17 g PO DAILY PRN constipa tion 3 09/22/23 Unknown Rx gram/dose oral powder (Miralax) months #850 grams albuterol sulfate 90 mcg/actuation 2 puff inhalation Q 4H PRN 01/03/24 Unknown Rx aerosol inhaler shortness of breath or wheez ing 3 months #17 grams albuterol sulfate 2.5 mg/3 mL 2.5 mg inhalation Q6H ID N 01/05/24 Unknown History (0.083 %) solution for nebulization shortness of breat h or wheezing Handicap Placard #1 ea 05/15/24 Unknown Rx cholecalciferol (vitamin D3) 1,250 50,000 unit PO QWEE K #13 caps 09/18/24 Unknown Rx mcg (50,000 unit) capsule dicyclomine 20 mg tablet 20 mg PO TID PRN abdominal 0 11/18/24 Unknown Rx discomfort #180 tabs semaglutide 0.25 mg or 0.5 mg (2 0.25 mg (0.368 mL) velásquez bcut QWEEK #3 01/03/25 10/10/24 Rx mg/3 mL) subcutaneous pen injector mL acetaminophen 500 mg capsule 1,000 mg PO DAILY 5 Unknown History ascorbic acid (vitamin C) 500 mg 1,000 mg PO DAILY Unknown History tablet (C-500) fluticasone propionate 50 1 spray intranasal DAILY PRN nasal 01/09/25 Unknown History mcg/actuation nasal congestion spray,suspension (Flonase Allergy Relief) ibuprofen 200 mg capsule 400 mg PO DAILY pain 5 Unknown History losartan 25 mg tablet 25 mg PO QHS 01/09/25 Unknow n History rosuvastatin 20 mg tablet 20 mg PO QHS 01/09/25 Unknow n History Allergy/AdvReac Type Severity Reaction Status Date / Time cephalexin monohydrate (From Allergy Severe Anaphylaxis Verified 01/09/25 10:50 Keflex) norfloxacin Allergy Severe Rash Verified 01/09/25 10:50 shellfish derived (seafood Allergy Severe TONGUE Verified 01/09/25 10:50 - shellfish) SWELLING Latex, Natural Rubber Allergy Mild Itching Verified 01/09/25 10:50 doxycycline Allergy Swelling Verified 01/09/25 10:50 metoprolol AdvReac Intermediate Sneezing Verified 01/09/25 10:50 and nasal congestion Family History Uncle Colon cancer Grandmother Mouth cancer Uterine cancer Mother Hypertension Sister Lymphoma Other Lung cancer Surgical History (Updated 01/09/25 @ 10:59 by Ophelia Pressley) History of colonoscopy History of colectomy Hx of appendectomy History of section History of tonsillectomy Social History Smoking Status: Former smoker how long ago did patient quit smoking: quit 15 years alcohol intake: never substance use type: does not use caffeine: Yes Type: coffee Number of servings: 1 what type of physical activity do you participate in: none seatbelt use: always do you feel safe at home: Yes additional social history: Single Audit: Pertinent Findings Pertinent Findings EKG Perinent findings: EKG 06/04/2023: Normal sinus rhythm with heart rate of 73 bpm. Echo (EF%) pertinent findings: Echo 06/24/2022: Normal LV size. Left ventricular systolic function is normal. The estimated ejection fraction is 65 %. Stage 1 diastolic dysfunction. No regional wall motion abnormalities noted. Additional pertinent findings: Holter monitor 06/24/2022: Baseline normal sinus rhythm with total of 4 premature ventricular ectopic isolated beats, 1 interpolated beat, 5 premature supraventricular ectopic isolated beats, and 1 atrial run consisting of 3 beats with a maximum rate of 158 over a 24-hour period. 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 Okay to proceed with colonoscopy.)
[2025-01-13] VITALS (7 sets, daily range): BP systolic 86–98; BP diastolic 50–69; PULSE 54–64; RESP 16–18; TEMP 36.6–36.8; O2SAT 96–99; BMI 37.4
--- NOTE | 2025-01-13 09:00 | PCM.PRE.AN2 ---
ASA Classification* ASA Classification ASA Classification: 3 Assessment & Plan Anesthesia* Anesthesia Assessment Anesthesia Assessment: Discussed sedation and/or anesthesia options, risks, benefits, and alternatives with patient/parents/legal guardian/POA. Questions invited. The patient/parents/legal guardian/POA seems to understand and agrees to proceed with anesthesia plan. Reviewed the physical assessment, medical history, allergy history and patient home medications list prior to surgery/procedure/anesthetic and documented any changes. Performed airway and anesthesia risk assessments. Anesthesia Type Anesthesia Type: MAC Anesthesia Focused Assessment* Airway Assessment Mouth opens: >3 cm Mallampati Score: II Labs Anesthesia Preop lab: CBC WBC 12.9 K/mm3 (4.4-11.0) H 06/05/23 00:15 06/05/23 RBC 4.67 M/mm3 (4.2-5.4) 06/05/23 00:15 06/05/23 Hgb 13.9 g/dL (12.0-15.0) 06/05/23 00:15 06/05/23 Hct 42.2 % (37-47) 06/05/23 00:15 06/05/23 Plt Count 423 K/mm3 (150-450) 06/05/23 00:15 06/05/23 CHEMISTRY Potassium 3.8 mmol/L (3.3-5.1) 09/06/24 15:00 09/06/24 Sodium 142 mmol/L (133-145) 09/06/24 15:00 09/06/24 BUN 16 mg/dL (4-19) 09/06/24 15:00 09/06/24 Creatinine 0.62 mg/dL (0.70-1.20) L 09/06/24 15:00 09/06/24 Glucose 114 mg/dL (70-99) H 09/06/24 15:00 09/06/24 COAG PT 12.8 SECONDS (11.7-14.9) 02/22/16 14:40 02/22/16 Pre-Assessment Diagnosis/Proposed Procedure Planned Operative Procedure(s): COLONOSCOPY Anesthesia History 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 When Was Last Pacemaker Check QUESTION #4 FULL TEXT: You/Your Family Experience fever (hyperthermia) with Anesthesia Last Oral Intake Last Oral intake: Last Oral Intake NPO since Meds taken in AM with sips of water? 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 Female Yes 01/09/25 10:59 HX of Motion Sickness No 01/09/25 10:59 HX of N/V After Surgery No 01/09/25 10:59 Non-Smoker Yes 01/09/25 10:59 Duration of Surgery greater No 01/09/25 10:59 than 60 minutes Number of Risk Factors 2 01/09/25 10:59 PONV Score Moderate Risk 01/09/25 10:59 Height & Weight Height & Weight: Anesthesia: Height & Weight Height 5 ft 4 in 01/02/25 10:43 Respiratory Assessment Respiratory Assessment - blast furnace blower: Respiratory Tract Infection Hx - blast furnace blower Hx Respiratory Tract Infection No 01/09/25 10:59 STOP Sleep Apnea STOP Sleep Apnea - blast furnace blower: STOP Sleep Apnea - blast furnace blower Hx Hypertension Yes: PER PT, CONTROLLED ON 01/09/25 10:59 MEDS Hx Sleep Apnea No 01/09/25 10:59 CPAP BIPAP Do you snore loudly (louder No 01/09/25 10:59 than talking or can be heard Do you often feel tired/ No 01/09/25 10:59 fatigued/ sleepy during daytime? Has anyone observed you stop No 01/09/25 10:59 breathing during sleep? STOP Results Negative 01/09/25 10:59 QUESTION #5 FULL TEXT : Do you snore loudly (louder than talking or can be heard through closed doors)? 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 Specify any problems Hx of Preganancy in last 3 No 01/09/25 10:59 Months Nurse Filling Out Transfusion MGRIFFITH 01/09/25 10:59 & Questions: Date: 01/09/25 01/09/25 10:59 Time: 11:02 01/09/25 10:59 Patient unable to answer at this time (ie. confused, unrespo /Reproduction History /Reproductive History - blast furnace blower: /Reproductive Hx- blast furnace blower Hx Now No 01/09/25 10:59 Gestational Age (in weeks): EDC: Hx Hx Para Hx Section SAB No 01/09/25 10:59 PFSH Medical History Wears dentures History of hepatitis History of diverticulitis Former smoker History of edema History of Holter monitoring History of echocardiogram Cardiology follow-up encounter Hypersomnolence GI bleed Thyroid nodule Screening for thyroid disorder Sinusitis Immunity status testing Acute bronchitis, unspecified Acute maxillary sinusitis, unspecified Cough Hypercalcemia Allergies Bilateral lower extremity edema Excessive cerumen in right ear canal Migraine Change in skin mole Calcific tendinitis of left shoulder Recurrent sinus infections History of cellulitis Right flank pain Flu vaccine need Borderline type 2 diabetes mellitus Arthritis Fatty liver High cholesterol Hypertension Meningioma Abrasion of right heel Vitamin D deficiency Osteoporosis Shoulder pain SOB (shortness of breath) Asthma Back pain HX: benign breast biopsy colon surgery-diverticulitis Home Medications ?Medication ?Instructions ?Recorded ?Last Taken ?Type garlic 1,000 mg capsule 1,000 mg PO DAILY 11/09/18 05/13/23 History nebulizers (Airs Disposable #1 ea 05/04/23 Unknown Rx Nebulizer misc) cyclobenzaprine 10 mg tablet 5 - 10 mg (0.5 - 1 x 10 mg) PO TID 06/14/23 Unknown Rx PRN muscle spasm #90 tabs nebulizer and compressor #1 ea 08/01/23 Unknown Rx nebulizers #1 ea 08/01/23 Unknown Rx polyethylene glycol 3350 17 17 g PO DAILY PRN constipation 3 09/22/23 Unknown Rx gram/dose oral powder (Miralax) months #850 grams albuterol sulfate 90 mcg/actuation 2 puff inhalation Q4H PRN 01/03/24 Unknown Rx aerosol inhaler shortness of breath or wheezing 3 months #17 grams albuterol sulfate 2.5 mg/3 mL 2.5 mg inhalation Q6H PRN 01/05/24 Unknown History (0.083 %) solution for nebulization shortness of breath or wheezing Handicap Placard #1 ea 05/15/24 Unknown Rx cholecalciferol (vitamin D3) 1,250 50,000 unit PO QWEEK #13 caps 09/18/24 Unknown Rx mcg (50,000 unit) capsule dicyclomine 20 mg tablet 20 mg PO TID PRN abdominal 11/18/24 Unknown Rx discomfort #180 tabs semaglutide 0.25 mg or 0.5 mg (2 0.25 mg (0.368 mL) subcut QWEEK #3 01/03/25 10/10/24 Rx mg/3 mL) subcutaneous pen injector mL acetaminophen 500 mg capsule 1,000 mg PO DAILY 01/09/25 Unknown History ascorbic acid (vitamin C) 500 mg 1,000 mg PO DAILY 01/09/25 Unknown History tablet (C-500) fluticasone propionate 50 1 spray intranasal DAILY PRN nasal 01/09/25 Unknown History mcg/actuation nasal congestion spray,suspension (Flonase Allergy Relief) ibuprofen 200 mg capsule 400 mg PO DAILY pain 01/09/25 Unknown History losartan 25 mg tablet 25 mg PO QHS 01/09/25 Unknown History rosuvastatin 20 mg tablet 20 mg PO QHS 01/09/25 Unknown History Allergy/AdvReac Type Severity Reaction Status Date / Time cephalexin monohydrate (From Allergy Severe Anaphylaxis Verified 01/09/25 10:50 Keflex) norfloxacin Allergy Severe Rash Verified 01/09/25 10:50 shellfish derived (seafood Allergy Severe TONGUE Verified 01/09/25 10:50 - shellfish) SWELLING Latex, Natural Rubber Allergy Mild Itching Verified 01/09/25 10:50 doxycycline Allergy Swelling Verified 01/09/25 10:50 metoprolol AdvReac Intermediate Sneezing Verified 01/09/25 10:50 and nasal congestion Family History Uncle Colon cancer Grandmother Mouth cancer Uterine cancer Mother Hypertension Sister Lymphoma Other Lung cancer Surgical History History of colonoscopy History of colectomy Hx of appendectomy History of section History of tonsillectomy Social History Smoking Status: Former smoker how long ago did patient quit smoking: quit 15 years alcohol intake: never substance use type: does not use caffeine: Yes Type: coffee Number of servings: 1 what type of physical activity do you participate in: none seatbelt use: always do you feel safe at home: Yes additional social history: Single Review of Systems (Anesthesia) ROS Narrative System reviewed and no additional complaints, except as documented.
[2025-01-13] MEDS: Lactated Ringers 1,000 ML 15 ML IV (09:32)
--- NOTE | 2025-01-13 09:35 | PCM.HP.STD ---
[facility] - General General Date of Admission: 01/13/25 Date of Service: 01/13/25 Chief Complaint: blood in the stool HPI Narrative YASEMIN VALENZUELA, is a 65 F who presents with the Chief Complaint: Blood in stool. She has concerns of chronic constipation, bleeding per rectum with history of partial colectomy due to diverticulitis. She presents with her daughter to help her translate some information as she is Indian speaking. She does communicate quite a bit of [place] and can read it well, but looks to her daughter for reassurance. She reports a long history of constipation. She takes Miralax twice a week and feels comfortable with that. She admits to bloating and distention. She reports sharp cramping RUQ pain with use of Miralax and refuses to take it more frequently despite feeling better after her BM. She denies RUQ pain after eating, only associated with the Miralax. She states that for the last week she has been noting small amounts of bright blood while wiping and maybe a few strands wrapped around her stool. She denies hemorrhoids. She is concerned for diverticulitis but denies tender abdomen, nausea, and severe pain. She reports rare occurrence of heartburn. She denies difficulty chewing and swallowing, cough, throat clearing, sinus drainage, reflux, nausea, emesis, diarrhea, and melena. [facility] Medical History Wears dentures History of hepatitis History of diverticulitis Former smoker History of edema History of Holter monitoring History of echocardiogram Cardiology follow-up encounter Hypersomnolence GI bleed Thyroid nodule Screening for thyroid disorder Sinusitis Immunity status testing Acute bronchitis, unspecified Acute maxillary sinusitis, unspecified Cough Hypercalcemia Allergies Bilateral lower extremity edema Excessive cerumen in right ear canal Migraine Change in skin mole Calcific tendinitis of left shoulder Recurrent sinus infections History of cellulitis Right flank pain Flu vaccine need Borderline type 2 diabetes mellitus Arthritis Fatty liver High cholesterol Hypertension Meningioma Abrasion of right heel Vitamin D deficiency Osteoporosis Shoulder pain SOB (shortness of breath) Asthma Back pain HX: benign breast biopsy colon surgery-diverticulitis Home Medications ?Medication ?Instructions ?Recorded ?Last Taken ?Type garlic 1,000 mg capsule 1,000 mg PO DAILY 11/09/18 05/13/23 History nebulizers (Airs Disposable #1 ea 05/04/23 Unknown Rx Nebulizer misc) cyclobenzaprine 10 mg tablet 5 - 10 mg (0.5 - 1 x 10 mg) PO TID 06/14/23 Unknown Rx PRN muscle spasm #90 tabs nebulizer and compressor #1 ea 08/01/23 Unknown Rx nebulizers #1 ea 08/01/23 Unknown Rx polyethylene glycol 3350 17 17 g PO DAILY PRN constipation 3 09/22/23 Unknown Rx gram/dose oral powder (Miralax) months #850 grams albuterol sulfate 90 mcg/actuation 2 puff inhalation Q4H PRN 01/03/24 Unknown Rx aerosol inhaler shortness of breath or wheezing 3 months #17 grams albuterol sulfate 2.5 mg/3 mL 2.5 mg inhalation Q6H PRN 01/05/24 Unknown History (0.083 %) solution for nebulization shortness of breath or wheezing Handicap Placard #1 ea 05/15/24 Unknown Rx cholecalciferol (vitamin D3) 1,250 50,000 unit PO QWEEK #13 caps 09/18/24 Unknown Rx mcg (50,000 unit) capsule dicyclomine 20 mg tablet 20 mg PO TID PRN abdominal 11/18/24 Unknown Rx discomfort #180 tabs semaglutide 0.25 mg or 0.5 mg (2 0.25 mg (0.368 mL) subcut QWEEK #3 01/03/25 10/10/24 Rx mg/3 mL) subcutaneous pen injector mL acetaminophen 500 mg capsule 1,000 mg PO DAILY 01/09/25 Unknown History ascorbic acid (vitamin C) 500 mg 1,000 mg PO DAILY 01/09/25 Unknown History tablet (C-500) fluticasone propionate 50 1 spray intranasal DAILY PRN nasal 01/09/25 Unknown History mcg/actuation nasal congestion spray,suspension (Flonase Allergy Relief) ibuprofen 200 mg capsule 400 mg PO DAILY pain 01/09/25 Unknown History losartan 25 mg tablet 25 mg PO QHS 01/09/25 Unknown History rosuvastatin 20 mg tablet 20 mg PO QHS 01/09/25 Unknown History Allergy/AdvReac Type Severity Reaction Status Date / Time cephalexin monohydrate (From Allergy Severe Anaphylaxis Verified 01/09/25 10:50 Keflex) norfloxacin Allergy Severe Rash Verified 01/09/25 10:50 shellfish derived (seafood Allergy Severe TONGUE Verified 01/09/25 10:50 - shellfish) SWELLING Latex, Natural Rubber Allergy Mild Itching Verified 01/09/25 10:50 doxycycline Allergy Swelling Verified 01/09/25 10:50 metoprolol AdvReac Intermediate Sneezing Verified 01/09/25 10:50 and nasal congestion Family History Uncle Colon cancer Grandmother Mouth cancer Uterine cancer Mother Hypertension Sister Lymphoma Other Lung cancer Surgical History History of colonoscopy History of colectomy Hx of appendectomy History of section History of tonsillectomy Social History Smoking Status: Former smoker how long ago did patient quit smoking: quit 15 years alcohol intake: never substance use type: does not use caffeine: Yes Type: coffee Number of servings: 1 what type of physical activity do you participate in: none seatbelt use: always do you feel safe at home: Yes additional social history: Single ROS Constitutional Constitutional: Denies fatigue, fever(s), poor appetite, weight gain or weight loss Gastrointestinal Gastrointestinal: Denies belching, bloating, change in bowel habits, change in stool character, chewing difficulty, coffee ground emesis, constipation, cramping, diarrhea, dyspepsia, dysphagia, early satiety, excessive flatus, fecal incontinence, heartburn, hematemesis, hematochezia, hemorrhoids, loose stools, melena, nausea, odynophagia, rectal bleeding, tenesmus, vomiting or weight changes Vital Signs Vital Signs Vital Signs: 01/13/25 09:20 01/13/25 09:20 Temperature 97.8 F Temperature Source Temporal Pulse Rate 64 Respiratory Rate 18 Respiratory Pattern Normal Blood Pressure 98/50 L Blood Pressure Mean 66 Blood Pressure Source Monitor Blood Pressure Position Right Lateral Blood Pressure Location Left Forearm Pulse Ox 97 Oxygen Delivery Method Room Air Weight Weight: 218 lb 4.122 oz Body Mass Index (BMI) 37.4 Physical Exam Const alert, oriented x3, no apparent distress and healthy appearing General Appearance: cooperative GI normal to inspection, nondistended, normoactive bowel sounds, soft to palpation, non-tender and non-distended Percussion: normal to percussion Rectal Exam: deferred Assessment & Plan Assessment/Plan (1) Hematochezia: (2) Constipation: QUALIFIERS: Constipation type: unspecified constipation type Qualified Code(s): K59.00 - Constipation, unspecified (3) History of partial colectomy: (4) Diverticula of colon: PLAN: Assessment and Plan Assessment and Plan (1) Diverticula of colon: Status: Chronic (2) History of partial colectomy: Status: Chronic (3) Constipation: Status: Chronic Qualifiers: Constipation type: unspecified constipation type Qualified Code(s): K59.00 - Constipation, unspecified (4) Hematochezia: Status: Acute Plan YASEMIN VALENZUELA, is a 64 F who presents to the office today for establishment with [facility] regarding concerns of chronic constipation, bleeding per rectum with history of partial colectomy due to diverticulitis. Discussed care plan with her. Considering history of constipation, I recommend that she start taking Miralax nightly for the full week prior to her scheduled colonoscopy. schedule colonoscopy, if insurance won't cover, she is willing to pay [place] office FU 2wks after colonoscopy
--- NOTE | 2025-01-13 10:30 | COLBX_PTH ---
PATIENT: YASEMIN VALENZUELA I LOC: EN U#:[id number] AGE/SX: 65/F ROOM: RE01/13/[address]: Dr. Heber Turner DO : 1960 BED: DIS: 01/13/2025 SPEC #: [id number] RECD: 01/13/25 11:23 STATUS: HERNANDEZ REQ #: [id number] NNAMDI: 01/13/25 10:[address]: Heber Turner DEPT: SURGICAL PATHOLOGY RECD BY: Earl Farnsworth ENTERED: 01/13/25 12:42 SP TYPE: COLON BX OT DR: Dr. Camille Chappell MD Tissues: A - Ascending colon B - Descending colon Procedures: Surgery Specimen Level IV HEADER OPERATION: Colonoscopy, biopsy PRE-OP DIAGNOSIS: Diverticula of colon, history of partial colectomy, constipation, hematochezia TISSUE SUBMITTED: A- Ascending polyp biopsy, B- Descending polyp biopsy MICROSCOPIC DIAGNOSIS A. Ascending colon, polyp, biopsy: - Mucosal lymphoid aggregate. B. Descending colon, polyp, biopsy: - Tubular adenoma (one fragment). - Hyperplastic polyp (one fragment). MICROSCOPIC DESCRIPTION Slides are reviewed. GROSS DESCRIPTION A. Received in fixative is one container labeled with the patient's name and designated Ascending polyp biopsy. The specimen consists of one irregular fragment of light huber soft tissue that measures 0.5 cm. The specimen is totally submitted in one cassette. B. Received in fixative is one container labeled with the patient's name and designated Descending polyp biopsy. The specimen consists of two irregular fragments of light huber soft tissue that measure 0.4 and 0.6 cm. The specimen is totally submitted in one cassette. AL 01/13/2025 CPT:24442v2
--- NOTE | 2025-01-13 11:23 | PCM.POST.ANE ---
Anesthesia: Postop Eval I Current Vital Signs Temperature: 98.2 F Pulse Rate: 57 Blood Pressure: 88/58 Respiratory Rate: 16 Pulse Ox: 98 Oxygen Delivery Method: Room Air Assessment Airway patent: Yes Spontaneous unlabored respirations: Yes Mental status: Asleep nausea: No Vomiting: No Anesthesia Complication: No Fluid Hydration Crystalloid volume administer (ml): 500 Total IV fluid infused: 500 Progress Note Anesthesia document: Postop Eval 1 completed: Yes
--- NOTE | 2025-01-13 11:25 | OP.PROVAT_ITS ---
01/13/2025 Camille Chappell MD [address] [place] [address] [place] [address] Re : Colonoscopy procedure for Matilda Gordillo Dear Dr. Chappell This procedure was performed on Monday, January 13, 2025. My impressions and recommendations are as follows: Impressions : - Two 7 mm polyps in the descending colon and in the ascending colon. - Diverticulosis in the recto-sigmoid colon, in the sigmoid colon and in the descending colon. - Patent end-to-side colo-colonic anastomosis, characterized by healthy appearing mucosa. - No specimens collected. Recommendations : - Discharge patient to home. - Resume previous diet. - Continue present medications. - Await pathology results. - Repeat colonoscopy in 5 years for surveillance. My findings are described in the full procedure note, which is enclosed. If I can be of further assistance, please feel free to contact me at . Sincerely, Heber Turner, 01/13/2025 11:24:54 AM This report has been signed electronically.
--- NOTE | 2025-01-13 11:25 | OP.COLON_ITS ---
Patient Name: Matilda Gordillo Procedure Date: 01/13/2025 10:43 AM Date of : 1960 Age: 65 Procedure: Colonoscopy Indications: Screening for colorectal malignant neoplasm Providers: Heber Turner DO Referring MD: Camille Chappell MD Medicines: Monitored Anesthesia Care Patient Profile: This is a 65 year old female. Refer to note in patient chart for documentation of history and physical. Last Colonoscopy: several years ago. Complications: No immediate complications. Procedure: Pre-Anesthesia Assessment: - Prior to the procedure, a History and Physical was performed, and patient medications and allergies were reviewed. The patient is competent. The risks and benefits of the procedure and the sedation options and risks were discussed with the patient. All questions were answered and informed consent was obtained. Patient identification and proposed procedure were verified by the physician in the pre-procedure area. Mental Status Examination: alert and oriented. Airway Examination: normal oropharyngeal airway and neck mobility. Respiratory Examination: clear to auscultation. CV Examination: normal. Prophylactic Antibiotics: The patient does not require prophylactic antibiotics. Prior Anticoagulants: The patient has taken no anticoagulant or antiplatelet agents except for NSAID medication. ASA Grade Assessment: II - A patient with mild systemic disease. After reviewing the risks and benefits, the patient was deemed in satisfactory condition to undergo the procedure. The anesthesia plan was to use monitored anesthesia care (MAC). Immediately prior to administration of medications, the patient was re-assessed for adequacy to receive sedatives. The heart rate, respiratory rate, oxygen saturations, blood pressure, adequacy of pulmonary ventilation, and response to care were monitored throughout the procedure. The physical status of the patient was re-assessed after the procedure. - Prior to the procedure, a History and Physical was performed, and patient medications and allergies were reviewed. The patient is competent. The risks and benefits of the procedure and the sedation options and risks were discussed with the patient. All questions were answered and informed consent was obtained. Patient identification and proposed procedure were verified by the physician in the pre-procedure area. Mental Status Examination: alert and oriented. Airway Examination: normal oropharyngeal airway and neck mobility. Respiratory Examination: clear to auscultation. CV Examination: normal. Prophylactic Antibiotics: The patient does not require prophylactic antibiotics. Prior Anticoagulants: The patient has taken no anticoagulant or antiplatelet agents. ASA Grade Assessment: II - A patient with mild systemic disease. After reviewing the risks and benefits, the patient was deemed in satisfactory condition to undergo the procedure. The anesthesia plan was to use monitored anesthesia care (MAC). Immediately prior to administration of medications, the patient was re-assessed for adequacy to receive sedatives. The heart rate, respiratory rate, oxygen saturations, blood pressure, adequacy of pulmonary ventilation, and response to care were monitored throughout the procedure. The physical status of the patient was re-assessed after the procedure. After I obtained informed consent, the scope was passed under direct vision. Throughout the procedure, the patient's blood pressure, pulse, and oxygen saturations were monitored continuously. The colonoscope was introduced through the anus and advanced to the cecum, identified by appendiceal orifice and ileocecal valve. The colonoscopy was performed without difficulty. The patient tolerated the procedure well. The quality of the bowel preparation was adequate. The terminal ileum, ileocecal valve, appendiceal orifice, and rectum were photographed. Scope In: 10:55:15 AM Scope Withdrawal Time 0 hours 9 minutes 37 seconds Scope Out: 11:12:12 AM Total Procedure Duration Time 0 hours 16 minutes 57 seconds Findings: The perianal and digital rectal examinations were normal. Two sessile polyps were found in the descending colon and ascending colon. The polyps were 7 mm in size. Multiple small-mouthed diverticula were found in the recto-sigmoid colon, sigmoid colon and descending colon. There was evidence of a prior end-to-side colo-colonic anastomosis in the recto-sigmoid colon. This was patent and was characterized by healthy appearing mucosa. The anastomosis was traversed. Impression: - Two 7 mm polyps in the descending colon and in the ascending colon. - Diverticulosis in the recto-sigmoid colon, in the sigmoid colon and in the descending colon. - Patent end-to-side colo-colonic anastomosis, characterized by healthy appearing mucosa. - No specimens collected. Recommendation: - Discharge patient to home. - Resume previous diet. - Continue present medications. - Await pathology results. - Repeat colonoscopy in 5 years for surveillance. Procedure Code(s): --- Professional --- 93941, Colonoscopy, flexible; diagnostic, including collection of specimen(s) by brushing or washing, when performed (separate procedure) CPT copyright 2021 [employer]. All rights reserved. The codes documented in this report are preliminary and upon intelligence specialist review may be revised to meet current compliance requirements. Heber Turner DO 01/13/2025 11:24:54 AM This report has been signed electronically. Number of Addenda: 0 Note Initiated On: 01/13/2025 10:43 AM
--- NOTE | 2025-01-13 14:02 | PCM.POSTANE2 ---
Anesthesia Postop Eval I Sum Postop Eval Completion status Anesthesia document: Postop Eval 1 completed: Yes Anesthesia Postop Eval I Summary Anesthesia Postop Eval I Summary: Anesthesia Postop Eval I: Assessment Summary Airway patent Yes 01/13/25 11:24 [email or web address] Spontaneous unlabored Yes 01/13/25 11:24 [email or web address] respirations Mental status Asleep 01/13/25 11:24 [email or web address] nausea No 01/13/25 11:24 [email or web address] Vomiting No 01/13/25 11:24 [email or web address] Anesthesia Postop Eval I: Fluid Summary Crystalloid volume administer 500 01/13/25 11:24 [email or web address] (ml) Colloids volume administered ( ml) Blood Product volume administered (ml) Total IV fluid infused 500 01/13/25 11:24 [email or web address] Anesthesia Postop Eval I: Summary Notes Anesthesia Complication No 01/13/25 11:24 [email or web address] Anesthesia Complication Comment: Post-operative progress note Anesthesia: Postop Eval II Evaluation Mental status: Awake Pain Level: 0 nausea: No Vomiting: No
== END 2025-01-13 12:02 | disposition home or self-care (01) ==
LOC: EN 08:49 → AC 08:51
PROVIDERS: PCP Internal Medicine; Referring Provider Internal Medicine; Visit Provider Internal Medicine Gastroenterology
PROC: 0DJD8ZZ Inspection of Lower Intestinal Tract, Via Natural or Artificial Opening Endoscopic (ICD-10-PCS; CPT 45378; principal; 2025-01-13 10:25)
DX: Z12.11 Encounter for screening for malignant neoplasm of colon (principal); D12.4 Benign neoplasm of descending colon; K57.31 Diverticulosis of large intestine without perforation or abscess with bleeding; K63.5 Polyp of colon; K59.09 Other constipation; I10 Essential (primary) hypertension; Z98.0 Intestinal bypass and anastomosis status; Z90.49 Acquired absence of other specified parts of digestive tract; Z79.899 Other long term (current) drug therapy; Z87.891 Personal history of nicotine dependence
CPT/HCPCS: 45380; 88305; J2405

== ENCOUNTER → 2025-06-10 | Outpatient (CLI) | payer OTHER, SELFPAY ==
--- NOTE | 2025-06-10 08:44 | US_ITS ---
PROCEDURE: ABD COMPLETE W/ ELASTOGRAPHY 06/10/2025 REASON FOR EXAM: FATTY LIVER TECHNIQUE: Procedure Code: [id number] Modality: US Procedure: ABD COMPLETE W/ ELASTOGRAPHY COMPARISON: CT dated 05/13/2023. FINDINGS: Diffuse increased echogenicity throughout the liver is compatible with fatty infiltration. No focal lesion. The liver is normal in size and contour. The gallbladder appears unremarkable. No gallbladder wall thickening or pericholecystic fluid. The common bile duct measures 4 mm in diameter, within normal limits. The visualized portions of the pancreas appear unremarkable. Both kidneys are normal in size, shape, and echotexture, without a focal lesion or hydronephrosis. The spleen appears unremarkable, measuring 9 cm in its greatest dimension. No free fluid. US/ABD Complete w/ Elastography IMPRESSION: Fatty liver. Reading Location: [id number]
== END | disposition home or self-care (01) ==
PROVIDERS: PCP Internal Medicine; Referring Provider Internal Medicine Gastroenterology; Visit Provider Internal Medicine Gastroenterology
DX: K76.0 Fatty (change of) liver, not elsewhere classified (principal)
CPT/HCPCS: 76700; 76981